=== PATIENT | female | born 1980 | race Caucasian/White ===

== ENCOUNTER 2018-04-10 10:24 | Emergency (ER) | payer OTHER ==
[2018-04-10] MEDS ORDERED: MORPHINE SULFATE 4 MG/ML SYRINGE IVP STA (10:59)
[2018-04-10] MEDS: SODIUM CHLORIDE 0.9% 500 ML IV SCH ×2 (11:37→11:39)
--- NOTE | 2018-04-10 11:44 | ED ---
General Adult HPI - General Chief complaint: Urogenital Stated complaint: hemorrhoids Time Seen by Provider: 04/10/18 10:45 Source: patient Mode of arrival: ambulatory Limitations: no limitations - History of Present Illness Initial comments: Misty is a 37-year-old female with a past medical history of hemorrhoids who presents to the emergency department today for evaluation of rectal pain. Patient reports that she has had hemorrhoids for a long period of time, never had any palpitations, never required any intervention, never been evaluated by a surgeon. Patient reports that approximately one week ago she began having significant pain in her rectum. She thought that this is related to her hemorrhoids. She has treated this discomfort with Tucks pads, Preparation H, sitz baths with absolutely no relief. She called her primary care physician became be evaluated until May, at this time the pain has become unbearable so she came to the ER for evaluation. Patient describes the pain as a constant severe pain. The pain is worse with any palpation or bowel movements. She can identify no relieving factors to the pain. Eyes any associated symptoms including fevers, chills, vomiting, chest pain, shortness of breath, abdominal pain or change in bowel or bladder habits. Patient does report that she is on iron supplement for anemia and that she takes this with a stool softener, however when the rectal pain began she stopped taking the iron because she didn't want to have any constipation or firm bowel movements. - Related Data Home Medications Medication Instructions Recorded Confirmed Ferrous Sulfate [Feosol] 325 mg PO DAILY 04/10/18 04/10/18 Previous Rx's Medication Instructions Recorded Hydrocortisone Acetate [Anusol-Hc] 25 mg RC DAILY #12 supp.rect 04/10/18 Allergies Allergy/AdvReac Type Severity Reaction Status Date / Time No Known Allergies Allergy Verified 04/10/18 10:47 Review of Systems ROS Statement: Those systems with pertinent positive or pertinent negative responses have been documented in the HPI. ROS Other: All systems not noted in ROS Statement are negative. Constitutional: Denies: fever ENT: Denies: throat pain Respiratory: Denies: dyspnea Cardiovascular: Denies: chest pain, palpitations Endocrine: Denies: fatigue Gastrointestinal: Reports: nausea (Episodes of nausea when pain is severe). Denies: abdominal pain, vomiting, diarrhea, constipation Genitourinary: Reports: other (rectal pain). Denies: urgency, dysuria Musculoskeletal: Denies: back pain Skin: Denies: rash, lesions Neurological: Denies: headache, weakness Psychiatric: Denies: anxiety Hematological/Lymphatic: Denies: easy bleeding, easy bruising Past Medical History Past Medical History: No Reported History History of Any Multi-Drug Resistant Organisms: None Reported Past Surgical History: No Surgical Hx Reported Past Psychological History: No Psychological Hx Reported Smoking Status: Current every day smoker Past Alcohol Use History: Occasional Past Drug Use History: None Reported General Exam Limitations: no limitations General appearance: alert, in no apparent distress Head exam: Present: atraumatic, normocephalic Course Vital Signs 04/10/18 10:40 Temperature 98.8 F Pulse Rate 109 H Respiratory 20 Rate Blood Pressure 159/91 O2 Sat by Pulse 97 Oximetry Procedures - Incision & Drainage Consent Obtained: verbal consent Time Out Performed?: Yes Site: buttock (Hemorrhoid) Anesthetic Used: lidocaine 1%, without epi I&D Cleaning Method: Betadine Sterile Field Used?: No Scalpel Used: #11 Needle Aspiration Performed?: No Irrigation Performed?: No I&D Drainage Obtained: Blood (clot) Patient Tolerated Procedure: well Medical Decision Making - Medical Decision Making Patient with rectal pain 1 week, physical exam reveals small hemorrhoids, there is one small thrombosed hemorrhoid, however patient reports a more generalized pain and patient has significant pain with rectal exam. There is minor concern for perirectal abscess despite patient having any risk factors. Labs and CT were ordered. Labs reveal no leukocytosis, no lactic acidosis CT reveals no inflammation of the rectum, no evidence of acute perirectal infection EMLA was ordered for the patient's hemorrhoids with the plan to open one small thrombosed hemorrhoid Local anesthetic was used, a approximately 5 mm incision was made and a small thrombosed hemorrhoid, small clot was evacuated. Patient reported complete resolution of her pain after the lidocaine was applied. Patient tolerated the procedure well. Patient discharged home with a diagnosis of thrombosed hemorrhoid. Was advised to have sitz bath 3 times daily. Follow- up with surgeon who she has seen in the past for discussion of surgical management of hemorrhoids - Lab Data Result diagrams: 04/10/18 11:50 04/10/18 11:50 Lab Results 04/10/18 04/10/18 04/10/18 Range/Units 11:50 11:50 11:50 WBC 8.0 (3.8-10.6) k/uL RBC 4.24 (3.80-5.40) m/uL Hgb 12.6 (11.4-16.0) gm/dL Hct 37.3 (34.0-46.0) % MCV 88.0 (80.0-100.0) fL MCH 29.8 (25.0-35.0) pg MCHC 33.9 (31.0-37.0) g/dL RDW 14.4 (11.5-15.5) % Plt Count 446 (150-450) k/uL Neutrophils % 74 % Lymphocytes % 15 % Monocytes % 6 % Eosinophils % 4 % Basophils % 1 % Neutrophils # 5.9 (1.3-7.7) k/uL Lymphocytes # 1.2 (1.0-4.8) k/uL Monocytes # 0.5 (0-1.0) k/uL Eosinophils # 0.3 (0-0.7) k/uL Basophils # 0.1 (0-0.2) k/uL PT (9.0-12.0) sec INR (<1.2) APTT (22.0-30.0) sec Sodium 139 (137-145) mmol/L Potassium 4.4 (3.5-5.1) mmol/L Chloride 110 H (98-107) mmol/L Carbon Dioxide 22 (22-30) mmol/L Anion Gap 7 mmol/L BUN 14 (7-17) mg/dL Creatinine 0.77 (0.52-1.04) mg/dL Est GFR (CKD-EPI)AfAm >90 (>60 ml/min/1.73 sqM) Est GFR (CKD-EPI)NonAf >90 (>60 ml/min/1.73 sqM) Glucose 92 (74-99) mg/dL Plasma Lactic Acid Steve 0.8 (0.7-2.0) mmol/L Calcium 9.3 (8.4-10.2) mg/dL Total Bilirubin 0.3 (0.2-1.3) mg/dL AST 20 (14-36) U/L ALT 27 (9-52) U/L Alkaline Phosphatase 84 (38-126) U/L Total Protein 6.9 (6.3-8.2) g/dL Albumin 4.3 (3.5-5.0) g/dL Urine Color Urine Appearance (Clear) Urine pH (5.0-8.0) Ur Specific [place] (1.001-1.035) Urine Protein (Negative) Urine Glucose (UA) (Negative) Urine Ketones (Negative) Urine Blood (Negative) Urine Nitrite (Negative) Urine Bilirubin (Negative) Urine Urobilinogen (<2.0) mg/dL Ur Leukocyte Esterase (Negative) Urine RBC (0-5) /hpf Urine WBC (0-5) /hpf Ur Squamous Epith Cells (0-4) /hpf Urine Mucus (None) /hpf Urine HCG, Qual (Not Detectd) 04/10/18 04/10/18 04/10/18 Range/Units 11:50 11:50 11:50 WBC (3.8-10.6) k/uL RBC (3.80-5.40) m/uL Hgb (11.4-16.0) gm/dL Hct (34.0-46.0) % MCV (80.0-100.0) fL MCH (25.0-35.0) pg MCHC (31.0-37.0) g/dL RDW (11.5-15.5) % Plt Count (150-450) k/uL Neutrophils % % Lymphocytes % % Monocytes % % Eosinophils % % Basophils % % Neutrophils # (1.3-7.7) k/uL Lymphocytes # (1.0-4.8) k/uL Monocytes # (0-1.0) k/uL Eosinophils # (0-0.7) k/uL Basophils # (0-0.2) k/uL PT 10.2 (9.0-12.0) sec INR 1.0 (<1.2) APTT 22.5 (22.0-30.0) sec Sodium (137-145) mmol/L Potassium (3.5-5.1) mmol/L Chloride (98-107) mmol/L Carbon Dioxide (22-30) mmol/L Anion Gap mmol/L BUN (7-17) mg/dL Creatinine (0.52-1.04) mg/dL Est GFR (CKD-EPI)AfAm (>60 ml/min/1.73 sqM) Est GFR (CKD-EPI)NonAf (>60 ml/min/1.73 sqM) Glucose (74-99) mg/dL Plasma Lactic Acid Steve (0.7-2.0) mmol/L Calcium (8.4-10.2) mg/dL Total Bilirubin (0.2-1.3) mg/dL AST (14-36) U/L ALT (9-52) U/L Alkaline Phosphatase (38-126) U/L Total Protein (6.3-8.2) g/dL Albumin (3.5-5.0) g/dL Urine Color Yellow Urine Appearance Clear (Clear) Urine pH 5.5 (5.0-8.0) Ur Specific [place] 1.020 (1.001-1.035) Urine Protein Trace H (Negative) Urine Glucose (UA) Negative (Negative) Urine Ketones Negative (Negative) Urine Blood Moderate H (Negative) Urine Nitrite Negative (Negative) Urine Bilirubin Negative (Negative) Urine Urobilinogen <2.0 (<2.0) mg/dL Ur Leukocyte Esterase Small H (Negative) Urine RBC 3 (0-5) /hpf Urine WBC 2 (0-5) /hpf Ur Squamous Epith Cells 1 (0-4) /hpf Urine Mucus Rare H (None) /hpf Urine HCG, Qual Not Detected (Not Detectd) Disposition Clinical Impression: Hemorrhoid thrombosis Disposition: HOME SELF-CARE Instructions: Hemorrhoids (ED), Thrombosed Hemorrhoid (ED) Prescriptions: Hydrocortisone Acetate [Anusol-Hc] 25 mg RC DAILY #12 supp.rect Is patient prescribed a controlled substance at d/c from ED?: No Referrals: Trudy Claudio MD [Primary Care Provider] - 1-2 days Time of Disposition: 14:41
[2018-04-10 12:14] LABS: Basophils # (A) 0.1 k/uL (0-0.2); Basophils % (A) 1 %; Eosinophils # (A) 0.3 k/uL (0-0.7); Eosinophils % (A) 4 %; HCT 37.3 % (34.0-46.0); HGB 12.6 gm/dL (11.4-16.0); Lymphocytes # (A) 1.2 k/uL (1.0-4.8); Lymphocytes % (A) 15 %; MCH 29.8 pg (25.0-35.0); MCHC 33.9 g/dL (31.0-37.0); Mean Platelet Volume 6.6; Monocytes # (A) 0.5 k/uL (0-1.0); Monocytes % (A) 6 %; Neutrophils # (A) 5.9 k/uL (1.3-7.7); Neutrophils % (A) 74 %; Platelet Count 446 k/uL (150-450); RBC 4.24 m/uL (3.80-5.40); RDW 14.4 % (11.5-15.5)
[2018-04-10 12:25] LABS: Appearance,Urine Clear (Clear); Bilirubin,Urine Negative (Negative); Blood,Urine Moderate (Negative); Color,Urine Yellow; Glucose,Urine (UA) Negative (Negative); Ketones,Urine Negative (Negative); Leukocyte Esterase,Urine Small (Negative); Mucus,Urine Rare /hpf; Nitrite,Urine Negative (Negative); PH, Urine 5.5 (5.0-8.0); Protein,Urine Trace (Negative); RBC,Urine 3 /hpf (0-5); Squamous Epithelial Cell,Urine 1 /hpf (0-4); Urobilinogen,Urine <2.0 mg/dL (<2.0); WBC,Urine 2 /hpf (0-5)
[2018-04-10 12:26] LABS: Partial Thromboplastin Time 22.5 sec (22.0-30.0); Prothrombin Time 10.2 sec (9.0-12.0)
[2018-04-10 12:28] LABS: ALT 27 U/L (9-52); AST 20 U/L (14-36); Albumin 4.3 g/dL (3.5-5.0); Alkaline Phosphatase 84 U/L (38-126); Anion Gap 7 mmol/L; Blood Urea Nitrogen 14 mg/dL (7-17); Calcium 9.3 mg/dL (8.4-10.2); Carbon Dioxide 22 mmol/L (22-30); Chloride 110 mmol/L (98-107); Glucose 92 mg/dL (74-99); Potassium 4.4 mmol/L (3.5-5.1); Sodium 139 mmol/L (137-145); Total Bilirubin 0.3 mg/dL (0.2-1.3); Total Protein 6.9 g/dL (6.3-8.2)
--- NOTE | 2018-04-10 12:45 | CT ---
EXAMINATION TYPE: CT abdomen pelvis w con DATE OF EXAM: 04/10/2018 COMPARISON: NONE HISTORY: 37-year-old female rectal pain x 7 days/hemorrhoids, concern for perirectal abscess TECHNIQUE: Contiguous axial scanning of the abdomen and pelvis following administration of 100 ml Iso alvina 300 IV contrast. Delayed images through the kidneys and coronal/sagittal reconstructions perform ed. CT DLP: 1235.4 mGycm Automated exposure control for dose reduction was used. FINDINGS: Heart normal size without pericardial effusion. Lung bases clear without pleural effusion. Liver mildly enlarged at 19.7 cm. No focal liver lesion. No biliary ductal dilatation. Gallbladder mildly hydropic but without any surrounding inflammation. Adrenal glands, kidneys, spleen, and pancreas show no gross abnormal. A few scattered mesenteric lymph nodes are mildly prominent at 7 mm. No dilated small bowel, free fluid, or free air. Scattered mild left-sided colonic diverticulosis. No pericolonic inflammatory change. Bladder nondistended. Uterus is anteverted. An IUD is appropriately situated within the uterine cavit y. Follicular change in both ovaries. The rectum is partially collapsed and there is no oral/rectal c ontrast on board. No abnormal fluid collection in the pelvis or pelvic lymphadenopathy. Bones: Mild degenerative disc disease throughout. IMPRESSION: 1. NO SPECIFIC FINDINGS OF PERIRECTAL/PERIANAL ABSCESS AT THIS TIME. IF THE PATIENT'S CONDITION DOES NOT IMPROVE OR THERE IS PERSISTENT CLINICAL CONCERN, CONSIDER THE ADDITION OF RECTAL CONTRAST. 2. MILD HEPATOMEGALY (19.7 CM). 3. MILDLY HYDROPIC GALLBLADDER BUT WITHOUT ANY SURROUNDING INFLAMMATION. PROBABLY RELATING TO FASTING STATE. IF RIGHT UPPER QUADRANT PAIN OR CONCERN FOR EARLY ACUTE CHOLECYSTITIS FOLLOW-UP ULTRASOUND OR HIDA SCAN. 4. MILD LEFT-SIDED COLONIC DIVERTICULOSIS.
[2018-04-10] MEDS ORDERED: LIDOCAINE-PRILOCAINE 2.5-2.5% CREAM 5 GM TUBE TOPICAL STA (13:25)
[2018-04-10] MEDS ORDERED: LIDOCAINE 1% INJ 10MG/ML (20 ML MDV) SQ ONE (14:43)
[2018-04-10 14:50] VITALS: BP 140/94; PULSE 81; RESP 18; TEMP 97.6
== END 2018-04-10 14:49 | disposition home or self-care (01) ==
LOC: EC 10:24
DX: K64.5 Perianal venous thrombosis (principal); F17.200 Nicotine dependence, unspecified, uncomplicated; Z79.899 Other long term (current) drug therapy
CPT/HCPCS: 36415; 46083; 74177; 80053; 81001; 81025; 83605; 85025; 85610; 85730; 87040; 87086; 93005; 96361; 96374; 99284

== ENCOUNTER 2018-04-27 13:29 | Emergency (ER) | payer OTHER ==
[2018-04-27] MEDS ORDERED: MORPHINE SULFATE 4 MG/ML SYRINGE IVP STA (13:52)
[2018-04-27] MEDS ORDERED: SODIUM CHLORIDE 0.9% 1,000 ML IV STA (13:52)
--- NOTE | 2018-04-27 13:59 | ED ---
General Adult HPI - General Chief complaint: GI Bleed Stated complaint: Rectal pain Time Seen by Provider: 04/27/18 13:44 Source: patient, RN notes reviewed Mode of arrival: ambulatory Limitations: no limitations - History of Present Illness Initial comments: This is a 37-year-old female who presents to the emergency department with chief complaint of rectal pain. Patient states that she has been having rectal pain for the past couple of months. She states that she was seen here in March and a thrombosed hemorrhoid was incised. She states that since that time the rectal pain has not improved. She states that she has noticed bright red blood per rectum and in her stool. Patient denies any worsening of pain but states that she has had no relief. She states that she presents to the emergency department today for evaluation because she "has the day off from work." Patient denies any fevers or chills, chest pain or shortness of breath, abdominal pain. She does state that she feels nauseous. Denies dysuria or hematuria. - Related Data Home Medications Medication Instructions Recorded Confirmed No Known Home Medications 04/27/18 04/27/18 Allergies Allergy/AdvReac Type Severity Reaction Status Date / Time No Known Allergies Allergy Verified 04/27/18 13:36 Review of Systems ROS Statement: Those systems with pertinent positive or pertinent negative responses have been documented in the HPI. ROS Other: All systems not noted in ROS Statement are negative. Past Medical History Past Medical History: No Reported History History of Any Multi-Drug Resistant Organisms: None Reported Past Surgical History: No Surgical Hx Reported Past Psychological History: No Psychological Hx Reported Smoking Status: Current every day smoker Past Alcohol Use History: Occasional Past Drug Use History: None Reported General Exam - General Exam Comments Initial Comments: General: Awake and alert, well-developed; in distress due to pain. Tearful. HEENT: Head atraumatic, normocephalic. Pupils are equal, round and reactive to light. Extraocular movements intact. Oropharynx moist without erythema or exudate. Neck: Supple. Normal ROM. Cardiovascular: Regular rate and rhythm. No murmurs, rubs or gallops. Chest symmetrical. Respiratory: Lungs clear to auscultation bilaterally. No wheezes, rales or rhonchi. Normal respiratory effort with no use of accessory muscles. Abdomen: Soft, non-tender, non-distended. No rigidity, rebound or guarding. Normal bowel sounds in all 4 quadrants. Musculoskeletal: Normal ROM, no tenderness bilateral upper and lower extremities. Ambulating normally. Skin: [place], warm and dry without rashes or lesions. Neurological: Alert and oriented x3. CN II-XII grossly intact. Speech is fluent and answers are appropriate. No focal neuro deficits. Psychiatric: Normal mood and affect. No overt signs of depression or anxiety noted. Limitations: no limitations Rectal exam: Present: normal inspection, normal rectal tone. Absent: hemorrhoids Course Vital Signs 04/27/18 04/27/18 13:33 15:55 Temperature 98.4 F 97.6 F Pulse Rate 121 H 72 Respiratory 20 18 Rate Blood Pressure 143/90 102/61 O2 Sat by Pulse 99 97 Oximetry Medical Decision Making - Medical Decision Making This is a 37-year-old female who presents to the emergency department with chief complaint of rectal pain and bleeding. Patient states she was seen here a couple of weeks ago and had a thrombosed hemorrhoid excised. She states that the pain has not gone away. On physical exam, no hemorrhoids are identified. Patient was sent for a computed tomography scan with rectal contrast. No perianal or perirectal abscesses were identified. Revealed a slightly low hemoglobin at 11.1. Vital signs are stable and patient is in no acute distress. Patient will be given contact information to follow up with gastroenterology. She is in agreement with plan and voices understanding. All questions were answered. - Lab Data Result diagrams: 04/27/18 14:25 04/27/18 14:25 Lab Results 04/27/18 04/27/18 Range/Units 14:25 14:25 WBC 7.7 (3.8-10.6) k/uL RBC 3.76 L (3.80-5.40) m/uL Hgb 11.1 L (11.4-16.0) gm/dL Hct 33.3 L (34.0-46.0) % MCV 88.5 (80.0-100.0) fL MCH 29.6 (25.0-35.0) pg MCHC 33.4 (31.0-37.0) g/dL RDW 14.4 (11.5-15.5) % Plt Count 388 (150-450) k/uL Neutrophils % 72 % Lymphocytes % 17 % Monocytes % 5 % Eosinophils % 3 % Basophils % 0 % Neutrophils # 5.6 (1.3-7.7) k/uL Lymphocytes # 1.3 (1.0-4.8) k/uL Monocytes # 0.4 (0-1.0) k/uL Eosinophils # 0.2 (0-0.7) k/uL Basophils # 0.0 (0-0.2) k/uL Sodium 140 (137-145) mmol/L Potassium 4.6 (3.5-5.1) mmol/L Chloride 110 H (98-107) mmol/L Carbon Dioxide 22 (22-30) mmol/L Anion Gap 8 mmol/L BUN 17 (7-17) mg/dL Creatinine 0.69 (0.52-1.04) mg/dL Est GFR (CKD-EPI)AfAm >90 (>60 ml/min/1.73 sqM) Est GFR (CKD-EPI)NonAf >90 (>60 ml/min/1.73 sqM) Glucose 91 (74-99) mg/dL Calcium 9.5 (8.4-10.2) mg/dL Total Bilirubin 0.2 (0.2-1.3) mg/dL AST 19 (14-36) U/L ALT 28 (9-52) U/L Alkaline Phosphatase 55 (38-126) U/L Total Protein 6.8 (6.3-8.2) g/dL Albumin 4.4 (3.5-5.0) g/dL - Radiology Data Radiology results: report reviewed CT pelvis with contrast impression: No perianal or perirectal abscess identified. 2. Follicular change in the ovaries with a 3.5 cm dominant follicle or functional cyst on the left. 3. Small amount of cul-de-sac and right adnexal free fluid likely physiologic. 4. Anteverted uterus with IUD appropriately centered in the uterine cavity. Disposition Clinical Impression: Rectal pain Disposition: HOME SELF-CARE Condition: Fair Instructions: Rectal Pain (ED) Additional Instructions: Please follow-up with Dr. Ballard, gastroenterology within 1-2 days. Please take medications as prescribed. Please follow up with primary care provider within 1- 2 days. Return to emergency department if symptoms should worsen or any concerns arise. Is patient prescribed a controlled substance at d/c from ED?: No Referrals: Trudy Claudio MD [Primary Care Provider] - 1-2 days Flor Ballard MD [STAFF PHYSICIAN] - 1-2 days Time of Disposition: 15:54
[2018-04-27 14:40] LABS: Basophils % (A) 0 %; Eosinophils # (A) 0.2 k/uL (0-0.7); Eosinophils % (A) 3 %; HCT 33.3 % (34.0-46.0); HGB 11.1 gm/dL (11.4-16.0); Lymphocytes # (A) 1.3 k/uL (1.0-4.8); Lymphocytes % (A) 17 %; MCH 29.6 pg (25.0-35.0); MCHC 33.4 g/dL (31.0-37.0); MCV 88.5 fL (80.0-100.0); Mean Platelet Volume 6.9; Monocytes # (A) 0.4 k/uL (0-1.0); Monocytes % (A) 5 %; Neutrophils # (A) 5.6 k/uL (1.3-7.7); Neutrophils % (A) 72 %; Platelet Count 388 k/uL (150-450); RBC 3.76 m/uL (3.80-5.40); RDW 14.4 % (11.5-15.5); WBC 7.7 k/uL (3.8-10.6)
[2018-04-27 14:55] LABS: ALT 28 U/L (9-52); AST 19 U/L (14-36); Albumin 4.4 g/dL (3.5-5.0); Alkaline Phosphatase 55 U/L (38-126); Anion Gap 8 mmol/L; Blood Urea Nitrogen 17 mg/dL (7-17); Calcium 9.5 mg/dL (8.4-10.2); Carbon Dioxide 22 mmol/L (22-30); Chloride 110 mmol/L (98-107); Glucose 91 mg/dL (74-99); Potassium 4.6 mmol/L (3.5-5.1); Sodium 140 mmol/L (137-145); Total Bilirubin 0.2 mg/dL (0.2-1.3); Total Protein 6.8 g/dL (6.3-8.2)
--- NOTE | 2018-04-27 15:41 | CT ---
EXAMINATION TYPE: CT pelvis w con DATE OF EXAM: 04/27/2018 COMPARISON: 04/10/2018 HISTORY: 37-year-old female Rectal pain and bright red blood in stool. TECHNIQUE: Contiguous axial scanning of the and pelvis following administration of 100 ml Isovue 300 IV contrast. Delayed images through the bladder and coronal/sagittal reconstructions performed. Rect al contrast was also administered. CT DLP: 1233 mGycm Automated exposure control for dose reduction was used. FINDINGS: No dilated small bowel, free fluid, or free air in the lower abdomen. Trace cul-de-sac free fluid is noted in the pelvis and right adnexa. Normal appendix. Moderate stool in the cecum. Anteverted uterus with IUD appropriately centered in the uterine cavity. Follicular change in both ovaries with a 3.5 cm dominant follicle or functional cyst on the left. Luis dder urine distended. No pelvic lymphadenopathy seen. Rectal contrast has been administered. No perineural perirectal abscess is identified. Bones: No osseous destructive process. Bulging discs L2-L5 levels. IMPRESSION: 1. NO PERIANAL OR PERIRECTAL ABSCESS IDENTIFIED. 2. FOLLICULAR CHANGE IN THE OVARIES WITH A 3.5 CM DOMINANT FOLLICLE OR FUNCTIONAL CYST ON THE LEFT. 3. SMALL AMOUNT OF CUL-DE-SAC AND RIGHT ADNEXAL FREE FLUID LIKELY PHYSIOLOGIC. 4. ANTEVERTED UTERUS WITH IUD APPROPRIATELY CENTERED IN THE UTERINE CAVITY.
[2018-04-27] MEDS ORDERED: ACET/COD 300 MG/30 MG STARTER PACK 6 TAB BTL PO STA (15:53)
[2018-04-27 15:55] VITALS: BP 102/61; PULSE 72; RESP 18; TEMP 97.6
== END 2018-04-27 16:04 | disposition home or self-care (01) ==
LOC: EC 13:29
DX: K62.89 Other specified diseases of anus and rectum (principal); K62.5 Hemorrhage of anus and rectum; F17.200 Nicotine dependence, unspecified, uncomplicated; Z87.19 Personal history of other diseases of the digestive system; Z98.890 Other specified postprocedural states
CPT/HCPCS: 99285; 96374; 96361; 36415; 80053; 85025; 72193; J2270; Q9967

== ENCOUNTER 2018-05-14 10:15 | Day surgery (SDC) | payer OTHER ==
[2018-05-12 11:21] VITALS: BMI 30.4
[~2018-05-14 10:15] MED LIST: LIDOCAINE 1% 20 ML VIAL (10MG/ML) FOR IV START INTRADERMA PRN
[2018-05-14 10:51] VITALS: TEMP 98.5
[2018-05-14] MEDS: LACTATED RINGERS 1,000 ML IV SCH ×2 (11:11→11:52)
[2018-05-14] MEDS ORDERED: PROPOFOL 10 MG/ML 20 ML VIAL IV ONE (11:55)
--- NOTE | 2018-05-14 12:14 | P.PCN ---
Date of Procedure: 05/14/18 Procedure(s) Performed: BRIEF HISTORY: Patient is a 37-year-old pleasant white female, scheduled for an elective colonoscopy as a part of rectal bleeding and intermittent rectal pain for the last 2 months duration. PROCEDURE PERFORMED: Colonoscopy. PREOPERATIVE DIAGNOSIS: Rectal bleeding and rectal pain of 3 months duration. IV sedation per Anesthesia. PROCEDURE: After informed consent was obtained, the patient, was brought into the endoscopy unit. IV sedation was administered by Anesthesia under continuous monitoring. Digital rectal examination revealed a posterior midline anal fissure.. Initially the Olympus CF-160 flexible video colonoscope was then inserted in the rectum, gradually advanced into the cecum without any difficulty. Careful examination was performed as the scope was gradually being withdrawn. Ileocecal valve and the appendiceal orifice were visualized and appeared normal. Prep was excellent. Mucosa of the cecum, ascending colon, transverse colon, descending colon, sigmoid colon, and rectum appeared normal. Retroflexion was performed in the rectum and no lesions were seen. The patient tolerated the procedure well. IMPRESSION: Normal-appearing colon from rectum to cecum with no evidence of colorectal neoplasia. Posterior midline anal fissure. RECOMMENDATIONS: Findings of this examination were discussed with the patient family. She was advised to avoid straining and constipation. She will be on a high-fiber diet. Advised and sitz baths and topical hydrocortisone suppositories as needed. She'll be seen in office in 2 weeks.
[2018-05-14 12:21] VITALS: RESP 16
[2018-05-14 12:38] VITALS: BP 119/79; PULSE 69
== END 2018-05-14 13:05 | disposition home or self-care (01) ==
LOC: ORWHC2ENDO 10:15
PROVIDERS: ATTEND Internal Medicine Gastroenterology
DX: K62.5 Hemorrhage of anus and rectum (principal); K60.2 Anal fissure, unspecified; F17.210 Nicotine dependence, cigarettes, uncomplicated; Z79.899 Other long term (current) drug therapy
CPT/HCPCS: 45378; 81025; J2704

== ENCOUNTER 2018-07-06 14:32 | Inpatient (IN) | payer OTHER ==
[2018-07-06] MEDS ORDERED: MORPHINE SULFATE 4 MG/ML SYRINGE IVP STA (14:55)
[2018-07-06] MEDS ORDERED: ONDANSETRON 4 MG/2 ML VIAL IVP STA (14:55)
[2018-07-06 15:30] LABS: Basophils % (A) 0 %; Eosinophils # (A) 0.2 k/uL (0-0.7); Eosinophils % (A) 2 %; HCT 34.8 % (34.0-46.0); HGB 11.2 gm/dL (11.4-16.0); Hypochromasia Slight; Lymphocytes # (A) 1.3 k/uL (1.0-4.8); Lymphocytes % (A) 16 %; MCH 26.4 pg (25.0-35.0); MCHC 32.1 g/dL (31.0-37.0); MCV 82.2 fL (80.0-100.0); Mean Platelet Volume 7.3; Monocytes # (A) 0.4 k/uL (0-1.0); Monocytes % (A) 5 %; Neutrophils % (A) 75 %; Platelet Count 376 k/uL (150-450); RBC 4.24 m/uL (3.80-5.40); RDW 14.7 % (11.5-15.5)
[2018-07-06 15:45] LABS: ALT 21 U/L (9-52); AST 21 U/L (14-36); Albumin 4.5 g/dL (3.5-5.0); Alkaline Phosphatase 63 U/L (38-126); Anion Gap 11 mmol/L; Blood Urea Nitrogen 19 mg/dL (7-17); Calcium 9.7 mg/dL (8.4-10.2); Carbon Dioxide 21 mmol/L (22-30); Chloride 109 mmol/L (98-107); Glucose 97 mg/dL (74-99); Sodium 141 mmol/L (137-145); Total Bilirubin 0.3 mg/dL (0.2-1.3); Total Protein 7.7 g/dL (6.3-8.2)
[2018-07-06] MEDS ORDERED: PIPERACILLIN-TAZOBACTAM 3.375 GM in DEXTROSE/WATER 1 50ML.BAG IVPB STA (15:51)
[2018-07-06] MEDS ORDERED: LEVOFLOXACIN 750MG-D5W PMX 750 MG in DEXTROSE/WATER 1 150ML.BAG IVPB STA (15:51)
--- NOTE | 2018-07-06 15:51 | ED ---
Skin/Abscess/FB HPI - General Chief complaint: Skin/Abscess/Foreign Body Stated complaint: Female , Abscess Time Seen by Provider: 07/06/18 14:43 Source: patient Mode of arrival: ambulatory Limitations: no limitations - History of Present Illness Initial comments: 37-year-old female patient presents to the emergency department today for evaluation of perirectal pain and swelling. Patient states that about a month ago she was treated for anal fissures with rectal steroids which did improve her symptoms. Patient states about 2 days ago she started having discomfort around the anus, states that it worsened today. She is unable to sit. She denies any drainage from the area. She denies any fever or chills. Denies any history of similar symptoms. Patient denies any recent rash, shortness breath, chest pain, abdominal pain, nausea, vomiting, diarrhea, constipation, back pain , numbness, tingling, dizziness, weakness, hematuria, dysuria, urinary urgency, urinary frequency, headache, visual changes, or any other complaints. - Related Data Home Medications Medication Instructions Recorded Confirmed Acetaminophen [Tylenol] 650 mg PO Q4H PRN 05/12/18 05/14/18 Allergies Allergy/AdvReac Type Severity Reaction Status Date / Time No Known Allergies Allergy Verified 07/06/18 14:42 Review of Systems ROS Statement: Those systems with pertinent positive or pertinent negative responses have been documented in the HPI. ROS Other: All systems not noted in ROS Statement are negative. Past Medical History Past Medical History: No Reported History Additional Past Medical History / Comment(s): rectal bleeding and pain History of Any Multi-Drug Resistant Organisms: None Reported Past Surgical History: No Surgical Hx Reported Additional Past Surgical History / Comment(s): colonoscopy Past Anesthesia/Blood Transfusion Reactions: No Reported Reaction Past Psychological History: No Psychological Hx Reported Smoking Status: Current every day smoker Past Alcohol Use History: Occasional Past Drug Use History: None Reported - Past Family History Mother Family Medical History: No Reported History General Exam Limitations: no limitations General appearance: alert, in no apparent distress, other (This is a well- developed, well-nourished adult female patient in no acute distress. Vital signs upon presentation are temperature 98.4F, pulse 86, respirations 18, blood pressure 138/88, pulse ox 98% on room air.) Eye exam: Present: normal appearance, PERRL, EOMI. Absent: scleral icterus, conjunctival injection, periorbital swelling ENT exam: Present: normal exam, normal oropharynx, mucous membranes moist Respiratory exam: Present: normal lung sounds bilaterally. Absent: respiratory distress, wheezes, rales, rhonchi, stridor Cardiovascular Exam: Present: regular rate, normal rhythm, normal heart sounds. Absent: systolic murmur, diastolic murmur, rubs, gallop, clicks GI/Abdominal exam: Present: soft, normal bowel sounds. Absent: distended, tenderness, guarding, rebound, rigid Rectal exam: Present: tenderness (Tenderness to the right side of the anus, 3 cm abscess with surrounding cellulitis and induration, tenderness also to the rectum internally at around 3:00.). Absent: normal inspection Neurological exam: Present: alert, oriented X3, CN II-XII intact Psychiatric exam: Present: normal affect, normal mood Skin exam: Present: warm, dry, intact, normal color. Absent: rash Course Vital Signs 07/06/18 14:39 Temperature 98.4 F Pulse Rate 86 Respiratory 18 Rate Blood Pressure 138/88 O2 Sat by Pulse 98 Oximetry Medical Decision Making - Medical Decision Making 37-year-old female patient presented to the emergency department today for complaints of rectal pain and swelling. Physical examination did reveal perirectal abscess with approximately 3 cm abscess to the right side at 3:00. Patient also had internal rectal tenderness. Labs reviewed and are unremarkable , white blood cell count normal, negative lactic acid. Patient was given pain medication and is feeling better upon reevaluation. We did start antibiotics. My attending Dr. Balbuena did discuss the case with Dr. Brennan who accepts admission. Patient be nothing by mouth at midnight. - Lab Data Result diagrams: 07/06/18 15:15 07/06/18 15:15 Lab Results 07/06/18 07/06/18 07/06/18 Range/Units 15:15 15:15 15:15 WBC 8.0 (3.8-10.6) k/uL RBC 4.24 (3.80-5.40) m/uL Hgb 11.2 L (11.4-16.0) gm/dL Hct 34.8 (34.0-46.0) % MCV 82.2 (80.0-100.0) fL MCH 26.4 (25.0-35.0) pg MCHC 32.1 (31.0-37.0) g/dL RDW 14.7 (11.5-15.5) % Plt Count 376 (150-450) k/uL Neutrophils % 75 % Lymphocytes % 16 % Monocytes % 5 % Eosinophils % 2 % Basophils % 0 % Neutrophils # 6.0 (1.3-7.7) k/uL Lymphocytes # 1.3 (1.0-4.8) k/uL Monocytes # 0.4 (0-1.0) k/uL Eosinophils # 0.2 (0-0.7) k/uL Basophils # 0.0 (0-0.2) k/uL Hypochromasia Slight Sodium 141 (137-145) mmol/L Potassium 4.0 (3.5-5.1) mmol/L Chloride 109 H (98-107) mmol/L Carbon Dioxide 21 L (22-30) mmol/L Anion Gap 11 mmol/L BUN 19 H (7-17) mg/dL Creatinine 0.72 (0.52-1.04) mg/dL Est GFR (CKD-EPI)AfAm >90 (>60 ml/min/1.73 sqM) Est GFR (CKD-EPI)NonAf >90 (>60 ml/min/1.73 sqM) Glucose 97 (74-99) mg/dL Plasma Lactic Acid Steve 0.6 L (0.7-2.0) mmol/L Calcium 9.7 (8.4-10.2) mg/dL Total Bilirubin 0.3 (0.2-1.3) mg/dL AST 21 (14-36) U/L ALT 21 (9-52) U/L Alkaline Phosphatase 63 (38-126) U/L Total Protein 7.7 (6.3-8.2) g/dL Albumin 4.5 (3.5-5.0) g/dL Disposition Clinical Impression: Perirectal abscess Disposition: ADMITTED IP TO THIS [facility] Condition: Serious Referrals: Trudy Claudio MD [Primary Care Provider] - 1-2 days Decision to Admit Reason: Admit from EC Decision Date: 07/06/18 Decision Time: 16:30
[2018-07-06] MEDS ORDERED: NALOXONE 0.4 MG/ML 1 ML VIAL IV PRN (16:10)
[2018-07-06] MEDS ORDERED: ACETAMINOPHEN TAB 325 MG TAB PO PRN (16:10)
[2018-07-06] MEDS ORDERED: ONDANSETRON 4 MG/2 ML VIAL IVP PRN (16:10)
[2018-07-06 17:51] VITALS: BMI 28.8
[2018-07-06] MEDS: MORPHINE SULFATE 4 MG/ML SYRINGE IV PRN ×2 (18:57→22:08)
[2018-07-06] MEDS: SODIUM CHLORIDE 0.9% 1,000 ML IV SCH (23:21)
[2018-07-07] MEDS: MORPHINE SULFATE 4 MG/ML SYRINGE IV PRN ×6 (01:51→21:14)
--- NOTE | 2018-07-07 10:30 | P.GSHP ---
History of Present Illness H&P Date: 07/07/18 Chief Complaint: Perirectal abscess [age]-year-old female was admitted through emergency complaints of anal pain. Patient was worked up found have evidence of perirectal abscess. Patient's had spontaneous drainage of purulent fluid from her anus overnight. She states her pain is improved. Past Medical History Past Medical History: No Reported History Additional Past Medical History / Comment(s): rectal bleeding and pain History of Any Multi-Drug Resistant Organisms: None Reported Past Surgical History: No Surgical Hx Reported Additional Past Surgical History / Comment(s): colonoscopy Past Anesthesia/Blood Transfusion Reactions: No Reported Reaction Past Psychological History: No Psychological Hx Reported Smoking Status: Current every day smoker Past Alcohol Use History: Occasional Additional Past Alcohol Use History / Comment(s): has smoked 1ppd for about 7 yrs; social drinker Past Drug Use History: None Reported - Past Family History Mother Family Medical History: No Reported History Medications and Allergies Home Medications Medication Instructions Recorded Confirmed Type No Known Home Medications 07/06/18 07/06/18 History Allergies Allergy/AdvReac Type Severity Reaction Status Date / Time No Known Allergies Allergy Verified 07/06/18 18:06 Surgical - Exam Vital Signs Temp Pulse Resp BP Pulse Ox 98.4 F 86 18 138/88 98 07/06/18 14:39 07/06/18 14:39 07/06/18 14:39 07/06/18 14:39 07/06/18 14:39 - General well developed, well nourished, no distress - Eyes PERRL - ENT normal pinna - Neck no masses - Respiratory normal expansion - Cardiovascular Rhythm: regular - Abdomen Abdomen: soft, non tender - Rectum Draining perirectal abscess Results - Labs 07/06/18 15:15 07/06/18 15:15 Abnormal Lab Results - Last 24 Hours (Table) 07/06/18 07/06/18 07/06/18 Range/Units 15:15 15:15 15:15 Hgb 11.2 L (11.4-16.0) gm/dL Chloride 109 H (98-107) mmol/L Carbon Dioxide 21 L (22-30) mmol/L BUN 19 H (7-17) mg/dL Plasma Lactic Acid Steve 0.6 L (0.7-2.0) mmol/L Diabetes panel 07/06/18 Range/Units 15:15 Sodium 141 (137-145) mmol/L Potassium 4.0 (3.5-5.1) mmol/L Chloride 109 H (98-107) mmol/L Carbon Dioxide 21 L (22-30) mmol/L BUN 19 H (7-17) mg/dL Creatinine 0.72 (0.52-1.04) mg/dL Glucose 97 (74-99) mg/dL Calcium 9.7 (8.4-10.2) mg/dL AST 21 (14-36) U/L ALT 21 (9-52) U/L Alkaline Phosphatase 63 (38-126) U/L Total Protein 7.7 (6.3-8.2) g/dL Albumin 4.5 (3.5-5.0) g/dL Calcium panel 07/06/18 Range/Units 15:15 Calcium 9.7 (8.4-10.2) mg/dL Albumin 4.5 (3.5-5.0) g/dL Pituitary panel 07/06/18 Range/Units 15:15 Sodium 141 (137-145) mmol/L Potassium 4.0 (3.5-5.1) mmol/L Chloride 109 H (98-107) mmol/L Carbon Dioxide 21 L (22-30) mmol/L BUN 19 H (7-17) mg/dL Creatinine 0.72 (0.52-1.04) mg/dL Glucose 97 (74-99) mg/dL Calcium 9.7 (8.4-10.2) mg/dL Adrenal panel 07/06/18 Range/Units 15:15 Sodium 141 (137-145) mmol/L Potassium 4.0 (3.5-5.1) mmol/L Chloride 109 H (98-107) mmol/L Carbon Dioxide 21 L (22-30) mmol/L BUN 19 H (7-17) mg/dL Creatinine 0.72 (0.52-1.04) mg/dL Glucose 97 (74-99) mg/dL Calcium 9.7 (8.4-10.2) mg/dL Total Bilirubin 0.3 (0.2-1.3) mg/dL AST 21 (14-36) U/L ALT 21 (9-52) U/L Alkaline Phosphatase 63 (38-126) U/L Total Protein 7.7 (6.3-8.2) g/dL Albumin 4.5 (3.5-5.0) g/dL Assessment and Plan Assessment: Perirectal abscess with spontaneous drainage. Patient will continue to receive IV antibiotics.
--- NOTE | 2018-07-07 12:29 | P.CONS ---
History of Present Illness - Reason for Consult Consult date: 07/07/18 Medical management - Chief Complaint Rectal pain - History of Present Illness This is a 37-year-old female with no significant past medical history who presented to the emergency room yesterday with worsening perirectal pain and discomfort. Patient said that several weeks ago she was diagnosed with anal fissures and has been doing fairly well up until 2 days ago when she noted having worsening discomfort around the anus area. She said the pain was severe enough that she was unable to sit down. She reported subjective fevers and chills at home. She presented to the emergency room for further evaluation. Patient did not have any evidence of sepsis on presentation. She was evaluated in the emergency room and was found to have a perirectal abscess diagnosed clinically by rectal exam in the ER. Patient was placed on observation for further evaluation. She was given broad-spectrum IV antibiotic. Apparently her drainage draining spontaneously overnight. She was seen and evaluated by general surgery. I was asked to see her for medical management. Patient herself does not have any complaints. She denies any pain at this time. No documented fever since admission. Review of Systems Review of system: 14 points review of systems were obtained and were negative except to what were mentioned in the HPI. Past Medical History Past Medical History: No Reported History Additional Past Medical History / Comment(s): rectal bleeding and pain History of Any Multi-Drug Resistant Organisms: None Reported Past Surgical History: No Surgical Hx Reported Additional Past Surgical History / Comment(s): colonoscopy Past Anesthesia/Blood Transfusion Reactions: No Reported Reaction Past Psychological History: No Psychological Hx Reported Smoking Status: Current every day smoker Past Alcohol Use History: Occasional Additional Past Alcohol Use History / Comment(s): has smoked 1ppd for about 7 yrs; social drinker Past Drug Use History: None Reported - Past Family History Mother Family Medical History: No Reported History Medications and Allergies Home Medications Medication Instructions Recorded Confirmed Type No Known Home Medications 07/06/18 07/06/18 History Allergies Allergy/AdvReac Type Severity Reaction Status Date / Time No Known Allergies Allergy Verified 07/06/18 18:06 Physical Exam Vitals: Vital Signs Temp Pulse Pulse Resp BP BP Pulse Ox 07/07/18 08:00 98.3 F 59 L 18 93/60 96 07/07/18 04:00 16 07/07/18 00:00 16 07/06/18 23:55 97.8 F 66 16 102/62 97 07/06/18 20:00 97.8 F 64 16 120/75 97 07/06/18 18:01 18 07/06/18 17:42 98.6 F 67 16 127/82 99 07/06/18 17:18 97.8 F 700 H 18 109/65 97 07/06/18 14:39 98.4 F 86 18 138/88 98 Intake and Output 07/06/18 07/07/18 07/07/18 22:59 06:59 14:59 Intake Total 450 440 Balance 450 440 Intake: IV 450 Sodium Chloride 0.9% 1, 450 000 ml @ 75 mls/hr IV . [id number] [facility] Rx#:[id number] Oral 440 Other: Voiding Method Toilet Toilet Toilet # Voids 3 Weight 86.183 kg General: The patient is awake and alert, in no distress Eye: there is normal conjunctiva bilaterally. Neck: The neck is supple, there is no JVD. Cardiovascular: Normal S1-S2, no S3-S4, no murmurs. Respiratory: Lungs clear to auscultation bilaterally Gastrointestinal: Abdomen is soft, nontender Musculoskeletal: There is no pedal edema. Neurological:. Speech is normal. Skin: Skin is warm and dry Results CBC & Chem 7: 07/06/18 15:15 07/06/18 15:15 Labs: Abnormal Lab Results - Last 24 Hours (Table) 07/06/18 07/06/18 07/06/18 Range/Units 15:15 15:15 15:15 Hgb 11.2 L (11.4-16.0) gm/dL Chloride 109 H (98-107) mmol/L Carbon Dioxide 21 L (22-30) mmol/L BUN 19 H (7-17) mg/dL Plasma Lactic Acid Steve 0.6 L (0.7-2.0) mmol/L Assessment and Plan Assessment: This is a 37-year-old female who was placed on observation with a diagnosis of perirectal abscess that drained spontaneously overnight. Patient was seen and evaluated by general surgery. No surgical intervention recommended. We will continue IV antibiotic for now. Patient is admitted under Gen. surgery. May finish short course of oral antibiotic when patient is here for discharge. Below is a list of her medical problems. 1. Perirectal abscess: Drained spontaneously. We will continue Zosyn and Levaquin for now. 2. DVT prophylaxis with subcu heparin. 3. Otherwise healthy female
[2018-07-07 12:57] LABS: Basophils % (A) 1 %; Eosinophils # (A) 0.2 k/uL (0-0.7); Eosinophils % (A) 4 %; HCT 32.7 % (34.0-46.0); HGB 10.6 gm/dL (11.4-16.0); Hypochromasia Slight; Lymphocytes # (A) 1.3 k/uL (1.0-4.8); Lymphocytes % (A) 21 %; MCH 26.5 pg (25.0-35.0); MCHC 32.4 g/dL (31.0-37.0); MCV 81.6 fL (80.0-100.0); Mean Platelet Volume 6.8; Monocytes # (A) 0.4 k/uL (0-1.0); Monocytes % (A) 7 %; Neutrophils % (A) 66 %; Platelet Count 326 k/uL (150-450); RBC 4.01 m/uL (3.80-5.40); RDW 14.3 % (11.5-15.5)
[2018-07-07] MEDS: PIPERACILLIN-TAZOBACTAM 3.375 GM in DEXTROSE/WATER 1 50ML.BAG IVPB SCH ×2 (13:13→21:14)
[2018-07-07] MEDS: LEVOFLOXACIN 500 MG TAB PO SCH (13:13)
[2018-07-07] MEDS: SODIUM CHLORIDE 0.9% 1,000 ML IV SCH (13:23)
[2018-07-07 15:38] VITALS: RESP 16
[2018-07-07] MEDS: HEPARIN SODIUM,PORCINE 5,000 UNIT/ML 1 ML VIAL SQ SCH (21:14)
[2018-07-07 23:26] VITALS: PULSE 66
[2018-07-08] MEDS: MORPHINE SULFATE 4 MG/ML SYRINGE IV PRN ×3 (00:27→08:05)
[2018-07-08] MEDS: SODIUM CHLORIDE 0.9% 1,000 ML IV SCH (03:45)
[2018-07-08] MEDS: PIPERACILLIN-TAZOBACTAM 3.375 GM in DEXTROSE/WATER 1 50ML.BAG IVPB SCH ×2 (03:46→13:16)
[2018-07-08] MEDS: HEPARIN SODIUM,PORCINE 5,000 UNIT/ML 1 ML VIAL SQ SCH (08:03)
[2018-07-08 08:26] VITALS: BP 121/81; TEMP 99
[2018-07-08] MEDS ORDERED: HYDROcodone/APAP 5-325MG 1 EACH TAB PO PRN (10:30)
--- NOTE | 2018-07-08 10:40 | P.PN ---
Subjective Progress Note Date: 07/08/18 Patient is doing well today. She denies any pain. No further drainage of the perianal area. No documented fever since admission. Objective - Vital Signs Vital signs: Vital Signs Temp 99 F 07/08/18 08:00 Pulse 66 07/08/18 08:00 Resp 16 07/08/18 08:00 BP 121/81 07/08/18 08:00 Pulse Ox 99 07/08/18 08:00 Intake & Output 07/07/18 07/08/18 07/08/18 18:59 06:59 18:59 Intake Total 1537 705 4695 Balance 5154 732 0067 Intake: IV 450 Sodium Chloride 0.9% 1, 450 000 ml @ 75 mls/hr IV . [id number] [facility] Rx#:[id number] Oral 740 1020 Other 600 Other: Voiding Method Toilet Toilet Toilet # Voids 2 - Exam General: The patient is awake and alert, in no distress Eye: there is normal conjunctiva bilaterally. Neck: The neck is supple, there is no JVD. Cardiovascular: Normal S1-S2, no S3-S4, no murmurs. Respiratory: Lungs clear to auscultation bilaterally Gastrointestinal: Abdomen is soft, nontender Musculoskeletal: There is no pedal edema. Neurological:. Speech is normal. Skin: Skin is warm and dry Nursing staff informed me that on her exam perianal area appeared normal with no redness or drainage - Labs CBC & Chem 7: 07/07/18 11:47 07/06/18 15:15 Labs: Abnormal Lab Results - Last 24 Hours (Table) 07/07/18 Range/Units 11:47 Hgb 10.6 L (11.4-16.0) gm/dL Hct 32.7 L (34.0-46.0) % Microbiology - Last 24 Hours (Table) 07/06/18 15:15 Blood Culture - Preliminary Blood No Growth after 24 hours Assessment and Plan Assessment: This is a 37-year-old female who was placed on observation with a diagnosis of perirectal abscess that drained spontaneously overnight. Patient was seen and evaluated by general surgery. No surgical intervention recommended. We will continue IV antibiotic for now. Patient is admitted under Gen. surgery. Below is a list of her medical problems. 1. Perirectal abscess: Drained spontaneously. We will continue Zosyn and Levaquin for now. May switch antibiotic to Augmentin for 7 days course 2. DVT prophylaxis with subcu heparin. 3. Otherwise healthy female Medically cleared for discharge
[2018-07-08] MEDS: LEVOFLOXACIN 500 MG TAB PO SCH (13:16)
--- NOTE | 2018-07-08 14:41 | P.DS ---
Providers Date of admission: 07/07/18 16:20 Expected date of discharge: 07/08/18 Attending physician: Gonzalo Brennan Consults: 07/07/18 10:30 Consult Physician Routine Consulting Provider: Ada Isaacs Consult Reason/Comments: Medical management Do you want consulting provider notified?: Yes Primary care physician: Trudy Claudio MD Hospital Course: 37-year-old female who presented to the emergency room with a perirectal abscess that drained spontaneously. Patient was started on IV Zosyn and monitor closely nursing reports that the perianal area appeared normal with no redness and no drainage patient remained afebrile was felt to be appropriate to be discharged home Impression discharge diagnosis Present on admission perirectal abscess drained spontaneously History of anal fistulas treated with rectal steroid noted improvement Present on admission perirectal pain and swelling suspect due to perirectal abscess resolved The above impression and plan of care have been discussed and directed by signing physician. Jossie Romo nurse practitioner acting as scribe for signing physician. Patient Condition at Discharge: Serious Plan - Discharge Summary Discharge Rx Participant: Yes New Discharge Prescriptions: New Amoxicillin/Potassium Clav [Augmentin 875-125 Tablet] 1 tab PO Q12HR #14 tab Acetaminophen Tab [Tylenol Tab] 650 mg PO Q4H PRN #30 tablet PRN Reason: Mild Discomfort Discharge Medication List Acetaminophen Tab [Tylenol Tab] 650 mg PO Q4H PRN #30 tablet 07/08/18 [Rx] Amoxicillin/Potassium Clav [Augmentin 875-125 Tablet] 1 tab PO Q12HR #14 tab [Rx] Follow up Appointment(s)/Referral(s): Trudy Claudio MD [Primary Care Provider] - 1-2 days Gonzalo Brennan MD [STAFF PHYSICIAN] - 1 Week Discharge Disposition: HOME SELF-CARE
== END 2018-07-08 18:24 | disposition home or self-care (01) | DRG 395 ==
LOC: EC 14:32 → UNDOADMOB 16:50 → 1SOBS 16:50 → OBSVTOIN 07-07 16:20
PROVIDERS: ADMIT Surgery; ATTEND Surgery
DX: K61.0 Anal abscess (principal); F17.210 Nicotine dependence, cigarettes, uncomplicated; Z71.6 Tobacco abuse counseling
CPT/HCPCS: 36415; 80053; 83605; 85025; 87040; 96365; 96375; 99284

== ENCOUNTER → 2019-09-12 | Outpatient (CLI) | payer OTHER ==
--- NOTE | 2019-09-13 12:08 | MR ---
EXAMINATION TYPE: MR brain wo/w con DATE OF EXAM: 09/12/2019 COMPARISON: None HISTORY: Blurred vision lt eye TECHNIQUE: Multiplanar, multisequence images of the brain and brainstem is performed without and with IV contras t, utilizing 9 mL intravenous Gadavist . FINDINGS: Diffusion weighted images demonstrate no evidence of a recent infarct or other diffusion ab normality. There is no extra-axial fluid collection or significant white matter signal abnormality. The ventricular system and cisternal spaces are normal in size and appearance. The brain volume is age appropriate. Midline structures demonstrate normal morphology, mild inferior cerebellar tonsillar ectopia is prese nt. The craniocervical junction appears within normal limits. Post contrast images demonstrate no a bnormal enhancement. The dural venous sinuses appear patent. The visualized sinuses are clear and the globes are intact. IMPRESSION: Mild inferior cerebellar tonsillar ectopia.
== END | disposition home or self-care (01) ==
LOC: RADMRIMAIN 14:16
PROVIDERS: ATTEND Ophthalmology
DX: Q04.8 Other specified congenital malformations of brain (principal)
CPT/HCPCS: 70553; A9585

== ENCOUNTER 2019-11-17 09:28 | Emergency (ER) | payer OTHER ==
[2019-11-17 10:02] VITALS: TEMP 99.2
[2019-11-17] MEDS ORDERED: IPRATROPIUM-ALBUTEROL 3 ML NEB INHALATION STA (10:25)
--- NOTE | 2019-11-17 10:26 | ED ---
URI HPI - General Chief Complaint: Upper Respiratory Infection Stated Complaint: cough/congestion Time Seen by Provider: 11/17/19 10:13 Source: patient, RN notes reviewed Mode of arrival: ambulatory Limitations: no limitations - History of Present Illness Initial Comments: This a 3-year-old female presents emergency Department with chief complaint of fever cough congestion body aches. Patient symptoms started last 24 hours. Patient states that she is a daily smoker has some wheezing. Patient otherwise has benign past medical history. Denies any chest pain she states she has muscle and joint aching. Patient states that she's had a slight headache, nasal congestion and nonproductive cough. Patient denies any abdominal complaints including nausea, vomiting diarrhea constipation. No sick contacts. - Related Data Previous Rx's Medication Instructions Recorded Acetaminophen Tab [Tylenol Tab] 650 mg PO Q4H PRN #30 tablet 07/08/18 Amoxicillin/Potassium Clav 1 tab PO Q12HR #14 tab 07/08/18 [Augmentin 875-125 Tablet] Oseltamivir [Tamiflu] 75 mg PO Q12HR #10 cap 11/17/19 Allergies Allergy/AdvReac Type Severity Reaction Status Date / Time No Known Allergies Allergy Verified 07/06/18 18:06 Review of Systems ROS Statement: Those systems with pertinent positive or pertinent negative responses have been documented in the HPI. ROS Other: All systems not noted in ROS Statement are negative. Past Medical History Past Medical History: No Reported History Additional Past Medical History / Comment(s): rectal bleeding and pain History of Any Multi-Drug Resistant Organisms: None Reported Past Surgical History: No Surgical Hx Reported Additional Past Surgical History / Comment(s): colonoscopy Past Anesthesia/Blood Transfusion Reactions: No Reported Reaction Past Psychological History: No Psychological Hx Reported Smoking Status: Current every day smoker Past Alcohol Use History: Occasional Past Drug Use History: None Reported - Past Family History Mother Family Medical History: No Reported History General Exam Limitations: no limitations General appearance: alert, in no apparent distress Head exam: Present: atraumatic, normocephalic, normal inspection Eye exam: Present: normal appearance, PERRL, EOMI. Absent: scleral icterus, conjunctival injection, periorbital swelling ENT exam: Present: normal exam, normal oropharynx, mucous membranes moist, TM's normal bilaterally Neck exam: Present: normal inspection, full ROM. Absent: tenderness, meningismus, lymphadenopathy Respiratory exam: Present: wheezes. Absent: normal lung sounds bilaterally, respiratory distress, rales, rhonchi, stridor Cardiovascular Exam: Present: regular rate, normal rhythm, normal heart sounds. Absent: systolic murmur, diastolic murmur, rubs, gallop, clicks Neurological exam: Present: alert, oriented X3 Skin exam: Present: warm, dry, intact, normal color. Absent: rash Course Vital Signs 11/17/19 11/17/19 11/17/19 09:58 10:26 10:48 Temperature 99.2 F Pulse Rate 97 92 Respiratory 18 18 Rate Blood Pressure 127/87 O2 Sat by Pulse 98 Oximetry 11/17/19 10:56 Temperature Pulse Rate 92 Respiratory Rate Blood Pressure O2 Sat by Pulse Oximetry Medical Decision Making - Medical Decision Making Chest x-ray does not show any definite pneumonia there is some atelectasis noted. Patient is influenza a positive be started on Tamiflu return parameters were discussed. - Lab Data Lab Results 11/17/19 Range/Units 10:31 Influenza Type A RNA Detected H (Not Detectd) Influenza Type B (PCR) Not Detected (Not Detectd) Disposition Clinical Impression: Influenza Disposition: HOME SELF-CARE Condition: Stable Instructions (If sedation given, give patient instructions): Influenza (ED) Additional Instructions: Please return to the Emergency Department if symptoms worsen or any other concerns. Prescriptions: Oseltamivir [Tamiflu] 75 mg PO Q12HR #10 cap Is patient prescribed a controlled substance at d/c from ED?: No Referrals: Marivel Camarena MD [Primary Care Provider] - 1-2 days Time of Disposition: 11:40
--- NOTE | 2019-11-17 10:55 | XR ---
EXAMINATION TYPE: XR chest 2V DATE OF EXAM: 11/17/2019 COMPARISON: NONE HISTORY: Cough and congestion for 2 days TECHNIQUE: Frontal and lateral views of the chest are obtained. FINDINGS: Right middle lobe linear airspace disease likely represents atelectasis not reproduced on the lateral view. No pneumothorax or pleural effusion. The cardiac silhouette size is within normal l imits. The osseous structures are intact. IMPRESSION: Right middle lobe airspace disease is seen on the frontal view only and likely represent s atelectasis given the linear morphology.
[2019-11-17 11:54] VITALS: BP 132/86; PULSE 86; RESP 16
== END 2019-11-17 11:50 | disposition home or self-care (01) ==
LOC: EC 09:28
DX: J10.1 Influenza due to other identified influenza virus with other respiratory manifestations (principal); J98.11 Atelectasis; F17.200 Nicotine dependence, unspecified, uncomplicated
CPT/HCPCS: 71046; 87502; 94640; 99285

== ENCOUNTER 2020-04-18 16:40 | Observation (INO) | payer OTHER ==
[2020-04-18] MEDS ORDERED: ONDANSETRON 4 MG/2 ML VIAL IVP STA (17:15)
[2020-04-18] MEDS ORDERED: KETOROLAC 30 MG/ML 1 ML VIAL IVP STA (17:15)
[2020-04-18] MEDS ORDERED: SODIUM CHLORIDE 0.9% 1,000 ML IV STA (17:15)
[2020-04-18] MEDS ORDERED: MORPHINE SULFATE 4 MG/ML SYRINGE IV STA (17:15)
[2020-04-18] MEDS ORDERED: PANTOPRAZOLE 40 MG/10 ML VIAL IVP STA (17:15)
[2020-04-18] MEDS ORDERED: PIPERACILLIN-TAZOBACTAM 3.375 GM in SODIUM CHLORIDE 0.9% 100 ML IVPB STA (17:19)
[2020-04-18] MEDS: SODIUM CHLORIDE 0.9% 1,000 ML IV STA ×2 (17:34→20:02)
--- NOTE | 2020-04-18 17:51 | ED ---
General Adult HPI <Marcus Vasquez - Last Filed: 04/18/20 19:31> - General Source: patient, RN notes reviewed, old records reviewed Mode of arrival: ambulatory Limitations: no limitations <Mackenzie Smith - Last Filed: 04/18/20 19:38> - General Chief complaint: Skin/Abscess/Foreign Body Stated complaint: Female , abcess Time Seen by Provider: 04/18/20 16:48 - History of Present Illness Initial comments: Patient is a 39-year-old female presents emergency department today for evaluation for concerns for perirectal abscess. Patient reports that she's had one previously which required admission to the hospital. She reports that it eventually drained on its own and did not require surgery intervention. 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 She reports that she started noticed the pain for the past 2 weeks. She states that over the past few days become increasingly painful and Patient notes severe pain with having a bowel movement. She reports that she did have a bowel movement yesterday and reports hard stool. Denies any bloody or dark tarry stool. She denies any fevers or chills. (Mackenzie Smith) - Related Data Previous Rx's Medication Instructions Recorded Acetaminophen Tab [Tylenol Tab] 650 mg PO Q4H PRN #30 tablet 07/08/18 Amoxicillin/Potassium Clav 1 tab PO Q12HR #14 tab 07/08/18 [Augmentin 875-125 Tablet] Oseltamivir [Tamiflu] 75 mg PO Q12HR #10 cap 11/17/19 Allergies Allergy/AdvReac Type Severity Reaction Status Date / Time No Known Allergies Allergy Verified 04/18/20 16:43 Review of Systems ROS Other: All systems not noted in ROS Statement are negative. <Marcus Vasquez - Last Filed: 04/18/20 19:31> ROS Other: All systems not noted in ROS Statement are negative. <Mackenzie Smith - Last Filed: 04/18/20 19:38> ROS Statement: Those systems with pertinent positive or pertinent negative responses have been documented in the HPI. Past Medical History Past Medical History: No Reported History Additional Past Medical History / Comment(s): rectal bleeding and pain History of Any Multi-Drug Resistant Organisms: None Reported Past Surgical History: No Surgical Hx Reported Additional Past Surgical History / Comment(s): colonoscopy Past Anesthesia/Blood Transfusion Reactions: No Reported Reaction Past Psychological History: No Psychological Hx Reported Past Alcohol Use History: Occasional Past Drug Use History: None Reported - Past Family History Mother Family Medical History: No Reported History <SarahMackenzie - Last Filed: 04/18/20 19:38> General Exam Limitations: no limitations General appearance: alert, in no apparent distress Head exam: Present: atraumatic, normocephalic, normal inspection Eye exam: Present: normal appearance, PERRL, EOMI. Absent: scleral icterus, conjunctival injection, periorbital swelling ENT exam: Present: normal exam, mucous membranes moist Neck exam: Present: normal inspection. Absent: tenderness, meningismus, lymphadenopathy Respiratory exam: Present: normal lung sounds bilaterally. Absent: respiratory distress, wheezes, rales, rhonchi, stridor Cardiovascular Exam: Present: regular rate, normal rhythm, normal heart sounds. Absent: systolic murmur, diastolic murmur, rubs, gallop, clicks GI/Abdominal exam: Present: soft, normal bowel sounds. Absent: distended, tenderness, guarding, rebound, rigid Rectal exam: Present: tenderness, other (Patient has a palpable abscess over the left quadrant of the rectum with erythema surrounding the left portion of the anal sphincter. has significant tenderness to palpation). Absent: normal inspection Extremities exam: Present: normal inspection, full ROM, normal capillary refill. Absent: tenderness, pedal edema, joint swelling, calf tenderness Back exam: Present: normal inspection Neurological exam: Present: alert, oriented X3, CN II-XII intact <SarahMackenzie - Last Filed: 04/18/20 19:38> - General Exam Comments Initial Comments: 39-year-old female. Alert and oriented 3. No significant distress. (Mackenzie Smith) Course Vital Signs 04/18/20 16:41 Temperature 98.2 F Pulse Rate 90 Respiratory 18 Rate Blood Pressure 150/91 O2 Sat by Pulse 99 Oximetry Medical Decision Making - Lab Data Result diagrams: 04/18/20 17:33 04/18/20 17:33 <Marcus Vasquez - Last Filed: 04/18/20 19:31> - Lab Data Result diagrams: 04/18/20 17:33 04/18/20 17:33 - Radiology Data Radiology results: report reviewed <Mackenzie Smith - Last Filed: 04/18/20 19:38> - Medical Decision Making Patient reevaluated by myself, Dr. Vasquez. Patient does have swelling and tenderness in the [address] report reviewed. Case discussed with Dr. Brennan will admit covering for surgical call. (Marcus Vasquez) 39-year-old female presents emergency department today for concerns for 2 weeks of developing perirectal abscess. Patient has area of fluctuance and erythema over the left midportion of the rectum. She has significant tenderness and pain to palpation over the anal sphincter.Patient labwork was reviewed, mild anemia, hgb 9.1. WBC within normal limitis. CT abdomen and pelvis was completed and does show concern for 1 cm small perianal abscess. Patient started on Zosyn at this time. Discussed the case with Dr. Vasquez also examined the Patient. He discussed with Dr. Gardiner patient's previous surgeon and Patient admitted at this time for IV antibiotics and surgical consult. (Mackenzie Smith) - Lab Data Lab Results 04/18/20 04/18/20 04/18/20 Range/Units 17:33 17:33 17:33 WBC 6.9 (3.8-10.6) k/uL RBC 4.15 (3.80-5.40) m/uL Hgb 9.2 L (11.4-16.0) gm/dL Hct 29.4 L (34.0-46.0) % MCV 70.7 L (80.0-100.0) fL MCH 22.1 L (25.0-35.0) pg MCHC 31.3 (31.0-37.0) g/dL RDW 18.6 H (11.5-15.5) % Plt Count 436 (150-450) k/uL Neutrophils % 68 % Lymphocytes % 21 % Monocytes % 5 % Eosinophils % 4 % Basophils % 1 % Neutrophils # 4.7 (1.3-7.7) k/uL Lymphocytes # 1.4 (1.0-4.8) k/uL Monocytes # 0.4 (0-1.0) k/uL Eosinophils # 0.3 (0-0.7) k/uL Basophils # 0.0 (0-0.2) k/uL Hypochromasia Marked Anisocytosis Slight Microcytosis Marked PT 9.8 (9.0-12.0) sec INR 0.9 (<1.2) APTT 23.4 (22.0-30.0) sec Sodium 136 L (137-145) mmol/L Potassium 4.0 (3.5-5.1) mmol/L Chloride 105 (98-107) mmol/L Carbon Dioxide 23 (22-30) mmol/L Anion Gap 8 mmol/L BUN 14 (7-17) mg/dL Creatinine 0.63 (0.52-1.04) mg/dL Est GFR (CKD-EPI)AfAm >90 (>60 ml/min/1.73 sqM) Est GFR (CKD-EPI)NonAf >90 (>60 ml/min/1.73 sqM) Glucose 101 H (74-99) mg/dL Plasma Lactic Acid Steve (0.7-2.0) mmol/L Calcium 9.6 (8.4-10.2) mg/dL Total Bilirubin 0.4 (0.2-1.3) mg/dL AST 30 (14-36) U/L ALT 20 (4-34) U/L Alkaline Phosphatase 79 (38-126) U/L Total Protein 7.3 (6.3-8.2) g/dL Albumin 4.6 (3.5-5.0) g/dL Urine Color Urine Appearance (Clear) Urine pH (5.0-8.0) Ur Specific [place] (1.001-1.035) Urine Protein (Negative) Urine Glucose (UA) (Negative) Urine Ketones (Negative) Urine Blood (Negative) Urine Nitrite (Negative) Urine Bilirubin (Negative) Urine Urobilinogen (<2.0) mg/dL Ur Leukocyte Esterase (Negative) Urine RBC (0-5) /hpf Urine WBC (0-5) /hpf Ur Squamous Epith Cells (0-4) /hpf 04/18/20 04/18/20 Range/Units 17:33 17:59 WBC (3.8-10.6) k/uL RBC (3.80-5.40) m/uL Hgb (11.4-16.0) gm/dL Hct (34.0-46.0) % MCV (80.0-100.0) fL MCH (25.0-35.0) pg MCHC (31.0-37.0) g/dL RDW (11.5-15.5) % Plt Count (150-450) k/uL Neutrophils % % Lymphocytes % % Monocytes % % Eosinophils % % Basophils % % Neutrophils # (1.3-7.7) k/uL Lymphocytes # (1.0-4.8) k/uL Monocytes # (0-1.0) k/uL Eosinophils # (0-0.7) k/uL Basophils # (0-0.2) k/uL Hypochromasia Anisocytosis Microcytosis PT (9.0-12.0) sec INR (<1.2) APTT (22.0-30.0) sec Sodium (137-145) mmol/L Potassium (3.5-5.1) mmol/L Chloride (98-107) mmol/L Carbon Dioxide (22-30) mmol/L Anion Gap mmol/L BUN (7-17) mg/dL Creatinine (0.52-1.04) mg/dL Est GFR (CKD-EPI)AfAm (>60 ml/min/1.73 sqM) Est GFR (CKD-EPI)NonAf (>60 ml/min/1.73 sqM) Glucose (74-99) mg/dL Plasma Lactic Acid Steve 0.7 (0.7-2.0) mmol/L Calcium (8.4-10.2) mg/dL Total Bilirubin (0.2-1.3) mg/dL AST (14-36) U/L ALT (4-34) U/L Alkaline Phosphatase (38-126) U/L Total Protein (6.3-8.2) g/dL Albumin (3.5-5.0) g/dL Urine Color Light Yellow Urine Appearance Clear (Clear) Urine pH 5.5 (5.0-8.0) Ur Specific [place] 1.004 (1.001-1.035) Urine Protein Negative (Negative) Urine Glucose (UA) Negative (Negative) Urine Ketones Negative (Negative) Urine Blood Negative (Negative) Urine Nitrite Negative (Negative) Urine Bilirubin Negative (Negative) Urine Urobilinogen <2.0 (<2.0) mg/dL Ur Leukocyte Esterase Small H (Negative) Urine RBC 4 (0-5) /hpf Urine WBC 1 (0-5) /hpf Ur Squamous Epith Cells 1 (0-4) /hpf - Radiology Data Slightly asymmetric appearance of the anus with wall thickening on the left side and 1 cm fluid density to be a small perianal abscess. (Mackenzie Smith) Disposition <Marcus Vasquez - Last Filed: 04/18/20 19:31> Is patient prescribed a controlled substance at d/c from ED?: No Time of Disposition: 19:38 <Mackenzie Smith - Last Filed: 04/18/20 19:38> Clinical Impression: Perirectal abscess Disposition: ADMITTED IP TO THIS HOSP Condition: Stable Referrals: Marivel Camarena MD [Primary Care Provider] - 1-2 days
[2020-04-18 18:00] LABS: Anisocytosis Slight; Basophils % (A) 1 %; Eosinophils # (A) 0.3 k/uL (0-0.7); Eosinophils % (A) 4 %; HCT 29.4 % (34.0-46.0); HGB 9.2 gm/dL (11.4-16.0); Hypochromasia Marked; Lymphocytes # (A) 1.4 k/uL (1.0-4.8); Lymphocytes % (A) 21 %; MCH 22.1 pg (25.0-35.0); MCHC 31.3 g/dL (31.0-37.0); MCV 70.7 fL (80.0-100.0); Mean Platelet Volume 7.5; Microcytosis Marked; Monocytes # (A) 0.4 k/uL (0-1.0); Monocytes % (A) 5 %; Neutrophils # (A) 4.7 k/uL (1.3-7.7); Neutrophils % (A) 68 %; Platelet Count 436 k/uL (150-450); RBC 4.15 m/uL (3.80-5.40); RDW 18.6 % (11.5-15.5); WBC 6.9 k/uL (3.8-10.6)
[2020-04-18 18:07] LABS: ALT 20 U/L (4-34); AST 30 U/L (14-36); African American GFR (CKD) >90 (>60 ml/min/1.73 sqM); Albumin 4.6 g/dL (3.5-5.0); Alkaline Phosphatase 79 U/L (38-126); Anion Gap 8 mmol/L; Blood Urea Nitrogen 14 mg/dL (7-17); Calcium 9.6 mg/dL (8.4-10.2); Carbon Dioxide 23 mmol/L (22-30); Chloride 105 mmol/L (98-107); Glucose 101 mg/dL (74-99); Non-African American GFR(CKD) >90 (>60 ml/min/1.73 sqM); Sodium 136 mmol/L (137-145); Total Bilirubin 0.4 mg/dL (0.2-1.3); Total Protein 7.3 g/dL (6.3-8.2)
[2020-04-18 18:08] LABS: INR 0.9 (<1.2); Partial Thromboplastin Time 23.4 sec (22.0-30.0); Prothrombin Time 9.8 sec (9.0-12.0)
[2020-04-18 18:27] LABS: Appearance,Urine Clear (Clear); Bilirubin,Urine Negative (Negative); Blood,Urine Negative (Negative); Color,Urine Light Yellow; Glucose,Urine (UA) Negative (Negative); Ketones,Urine Negative (Negative); Leukocyte Esterase,Urine Small (Negative); Nitrite,Urine Negative (Negative); PH, Urine 5.5 (5.0-8.0); Protein,Urine Negative (Negative); RBC,Urine 4 /hpf (0-5); Specific Gravity,Urine 1.004 (1.001-1.035); Squamous Epithelial Cell,Urine 1 /hpf (0-4); Urobilinogen,Urine <2.0 mg/dL (<2.0); WBC,Urine 1 /hpf (0-5)
--- NOTE | 2020-04-18 19:01 | CT ---
EXAMINATION TYPE: CT pelvis w con DATE OF EXAM: 04/18/2020 COMPARISON: 04/27/2018 HISTORY: Perirectal abscess. CT DLP: 928.1 mGycm Automated exposure control for dose reduction was used. CONTRAST: Performed with IV Contrast, patient injected with 100 mL of Isovue 300. Images were obtained from the mid kidneys to the floor the pelvis with IV contrast. There is no evidence of mesenteric edema. There are some sigmoid diverticula. No sign of diverticulit is. There is no ascites. There is no evidence of free air. There is no sign of thickened appendix. Th ere is no inguinal hernia. Bladder distends smoothly. Uterus is anteverted. There is minimal soft tissue thickening on the left side of the anus compared to the right. There is small 12 by 8mm fluid area on the posterior left radha e of the anus. There is normal-appearing fecal material in the rectum. I see no rectal wall thickenin g. There is probably a 2 cm cyst on the right ovary. The lower lumbar spine is intact. There is mild posterior disc bulging at L3-4 L4-5. The bony pelvis is intact. Hip joint spaces are fairly normal. T he uterus is anteverted. There is IUD in good position in the uterine fundus. There is a few small ai r bubbles in the vagina thought to be of no significance. IMPRESSION: Slight asymmetric appearance of the anus with wall thickening on the left side and 1 cm area of fluid density that could be small perianal abscess.
[2020-04-18] MEDS ORDERED: IBUPROFEN 400 MG TAB PO PRN (19:46)
[2020-04-18] MEDS ORDERED: ACETAMINOPHEN TAB 325 MG TAB PO PRN (19:46)
[2020-04-18] MEDS ORDERED: ONDANSETRON 4 MG/2 ML VIAL IVP PRN (19:46)
[2020-04-18] MEDS ORDERED: NALOXONE 0.4 MG/ML 1 ML VIAL IV PRN (19:46)
[2020-04-18] MEDS: MORPHINE SULFATE 4 MG/ML SYRINGE IV PRN (22:30)
[2020-04-18] MEDS: PIPERACILLIN-TAZOBACTAM 3.375 GM in SODIUM CHLORIDE 0.9% 100 ML IVPB SCH (23:45)
[2020-04-18] MEDS: SODIUM CHLORIDE 0.9% 1,000 ML IV SCH (23:45)
[2020-04-19] MEDS: MORPHINE SULFATE 4 MG/ML SYRINGE IV PRN ×5 (02:15→22:01)
[2020-04-19] MEDS: SODIUM CHLORIDE 0.9% 1,000 ML IV SCH ×2 (05:16→16:35)
[2020-04-19] MEDS: PIPERACILLIN-TAZOBACTAM 3.375 GM in SODIUM CHLORIDE 0.9% 100 ML IVPB SCH ×3 (08:06→23:08)
[2020-04-19] MEDS: PANTOPRAZOLE 40 MG/10 ML VIAL IV SCH (08:07)
[2020-04-19] MEDS ORDERED: LIDOCAINE 1% INJ 10MG/ML (20 ML MDV) SQ ONE (11:07)
--- NOTE | 2020-04-19 17:12 | P.GSHP ---
History of Present Illness H&P Date: 04/19/20 Chief Complaint: Perirectal pain This a 39-year-old female who is admitted through the emergency room last night with complaints of rectal pain. Patient was found have a small perirectal abscess. She is currently receiving IV antibiotics. Past Medical History Past Medical History: No Reported History Additional Past Medical History / Comment(s): rectal bleeding and pain History of Any Multi-Drug Resistant Organisms: None Reported Past Surgical History: No Surgical Hx Reported Additional Past Surgical History / Comment(s): colonoscopy Past Anesthesia/Blood Transfusion Reactions: No Reported Reaction Smoking Status: Current every day smoker - Past Family History Mother Family Medical History: No Reported History Medications and Allergies Home Medications Medication Instructions Recorded Confirmed Type No Known Home Medications 04/18/20 04/18/20 History Allergies Allergy/AdvReac Type Severity Reaction Status Date / Time No Known Allergies Allergy Verified 04/18/20 22:34 Surgical - Exam Vital Signs Temp Pulse Resp BP Pulse Ox 98.2 F 90 18 150/91 99 04/18/20 16:41 04/18/20 16:41 04/18/20 16:41 04/18/20 16:41 04/18/20 16:41 - General well developed, well nourished, no distress - Eyes PERRL - ENT normal pinna - Neck no masses - Respiratory normal expansion - Cardiovascular Rhythm: regular - Abdomen Abdomen: soft, non tender - Rectum Left perirectal abscess Results - Labs 04/18/20 17:33 04/18/20 17:33 Abnormal Lab Results - Last 24 Hours (Table) 04/18/20 04/18/20 04/18/20 Range/Units 17:33 17:33 17:59 Hgb 9.2 L (11.4-16.0) gm/dL Hct 29.4 L (34.0-46.0) % MCV 70.7 L (80.0-100.0) fL MCH 22.1 L (25.0-35.0) pg RDW 18.6 H (11.5-15.5) % Sodium 136 L (137-145) mmol/L Glucose 101 H (74-99) mg/dL Ur Leukocyte Esterase Small H (Negative) Diabetes panel 04/18/20 Range/Units 17:33 Sodium 136 L (137-145) mmol/L Potassium 4.0 (3.5-5.1) mmol/L Chloride 105 (98-107) mmol/L Carbon Dioxide 23 (22-30) mmol/L BUN 14 (7-17) mg/dL Creatinine 0.63 (0.52-1.04) mg/dL Glucose 101 H (74-99) mg/dL Calcium 9.6 (8.4-10.2) mg/dL AST 30 (14-36) U/L ALT 20 (4-34) U/L Alkaline Phosphatase 79 (38-126) U/L Total Protein 7.3 (6.3-8.2) g/dL Albumin 4.6 (3.5-5.0) g/dL Calcium panel 04/18/20 Range/Units 17:33 Calcium 9.6 (8.4-10.2) mg/dL Albumin 4.6 (3.5-5.0) g/dL Pituitary panel 04/18/20 Range/Units 17:33 Sodium 136 L (137-145) mmol/L Potassium 4.0 (3.5-5.1) mmol/L Chloride 105 (98-107) mmol/L Carbon Dioxide 23 (22-30) mmol/L BUN 14 (7-17) mg/dL Creatinine 0.63 (0.52-1.04) mg/dL Glucose 101 H (74-99) mg/dL Calcium 9.6 (8.4-10.2) mg/dL Adrenal panel 04/18/20 Range/Units 17:33 Sodium 136 L (137-145) mmol/L Potassium 4.0 (3.5-5.1) mmol/L Chloride 105 (98-107) mmol/L Carbon Dioxide 23 (22-30) mmol/L BUN 14 (7-17) mg/dL Creatinine 0.63 (0.52-1.04) mg/dL Glucose 101 H (74-99) mg/dL Calcium 9.6 (8.4-10.2) mg/dL Total Bilirubin 0.4 (0.2-1.3) mg/dL AST 30 (14-36) U/L ALT 20 (4-34) U/L Alkaline Phosphatase 79 (38-126) U/L Total Protein 7.3 (6.3-8.2) g/dL Albumin 4.6 (3.5-5.0) g/dL Assessment and Plan Assessment: Labs this. Patient received IV antibiotics. She'll undergo incision and drainage of pararectal abscess.
--- NOTE | 2020-04-19 17:13 | P.OP ---
Date of Procedure: 04/19/20 Preoperative Diagnosis: Perirectal abscess Postoperative Diagnosis: Perirectal abscess Procedure(s) Performed: Incision and drainage of perirectal abscess Anesthesia: local Surgeon: Gonzalo Brennan Estimated Blood Loss (ml): 5 Pathology: none sent Condition: stable Disposition: PACU Description of Procedure: Patient's placed on her bed in the lateral position.. Lantus was localized 1% local Xylocaine. Using 11 blade a skin incision was made and a small amount. Fluid was expressed from the peritoneal abscess. The wound is packed. Patient tolerated the procedure well.
[2020-04-20] MEDS: SODIUM CHLORIDE 0.9% 1,000 ML IV SCH (02:10)
[2020-04-20] MEDS: KETOROLAC 30 MG/ML 1 ML VIAL IVP PRN ×2 (03:16→09:40)
[2020-04-20 08:11] VITALS: BP 119/74; PULSE 72; RESP 16; TEMP 98.7
[2020-04-20] MEDS: PANTOPRAZOLE 40 MG/10 ML VIAL IV SCH (08:14)
[2020-04-20] MEDS: PIPERACILLIN-TAZOBACTAM 3.375 GM in SODIUM CHLORIDE 0.9% 100 ML IVPB SCH (08:14)
--- NOTE | 2020-04-20 11:02 | P.DS ---
Providers Date of admission: 04/20/20 09:56 Expected date of discharge: 04/20/20 Attending physician: Gonzalo Brennan Consults: 04/19/20 17:16 Consult Physician Routine Consulting Provider: Bety Ortez Consult Reason/Comments: Medical management Do you want consulting provider notified?: Yes Primary care physician: Marivel Camarena [facility] Course: This a 39-year-old female who was admitted to the hospital. Rectal abscess. Patient underwent bedside drainage of perirectal abscess. Please see hospital chart for details. Patient Condition at Discharge: Stable Plan - Discharge Summary Discharge Rx Participant: No New Discharge Prescriptions: New HYDROcodone/APAP 5-325MG [[place] 5-325] 1 tab PO Q6HR PRN #10 tab PRN Reason: Pain Sulfamethox-Tmp 800-160Mg [Bactrim DS 800-160 mg] 1 tab PO Q12HR #14 tab Discharge Medication List HYDROcodone/APAP 5-325MG [[place] 5-325] 1 tab PO Q6HR PRN #10 tab 04/20/20 [Rx] Sulfamethox-Tmp 800-160Mg [Bactrim DS 800-160 mg] 1 tab PO Q12HR #14 tab 04/20/20 [Rx] Follow up Appointment(s)/Referral(s): Marivel Camarena MD [Primary Care Provider] - 1-2 days Gonzalo Brennan MD [STAFF PHYSICIAN] - 1 Week Discharge Disposition: HOME SELF-CARE
--- NOTE | 2020-07-01 11:25 | P.CONS ---
History of Present Illness - Reason for Consult Consult date: 04/20/20 Medical management - Chief Complaint rectal pain - History of Present Illness Patient is a 39-year-old female without significant past medical history came to ER with complaints of rectal pain and concern for perirectal abscesses. Patient states that she was previously required admission to the hospital. Patient states that abscess is draining on its own and did not require any surgical intervention. Patient started noticing rectal pain for the past 2 weeks and over the past few days pain has been increasing and severe pain with bowel movement. Patient did have bowel movement with hard stool yesterday. Denied any hematemesis at melena or hematochezia. No fever no chills. Denied any history of multiple sexual partners. Patient states that she was tested for HIV previously and was negative. Laboratory data showed WBC 6.9, hemoglobin 9.2 and MCV 70.7 and RDW 18.6 Sodium 136, potassium 4.0 and chloride 105, BUN 14 and creatinine 0.63 UA negative for infection COVID-19 infection negative Hemodynamically stable Patient underwent I&D of perirectal abscess. Review of Systems Constitutional: Patient denies any fever or chills . No generalized weakness or weight loss. Abdomen: Patient denied nausea vomiting and diarrhea and abdominal pain. Patient does have rectal pain and pain with bowel movement. Cardiovascular: Patient denies any chest pain or short of breath no palpitations. Respiratory: patient denied any cough or sputum production. No shortness of breath Neurologic: Patient denied any numbness or tingling headache. Musculoskeletal: Patient denies any complaints of joint swelling or deformity. Skin: Negative Psychiatric: Negative Endocrine: No heat or cold intolerance. No recent weight gain. Genitourinary: No dysuria or hematuria. All other 14 point ROS negative except the above Past Medical History Past Medical History: No Reported History Additional Past Medical History / Comment(s): rectal bleeding and pain History of Any Multi-Drug Resistant Organisms: None Reported Past Surgical History: No Surgical Hx Reported Additional Past Surgical History / Comment(s): colonoscopy Past Anesthesia/Blood Transfusion Reactions: No Reported Reaction Smoking Status: Current every day smoker - Past Family History Mother Family Medical History: No Reported History Medications and Allergies Home Medications Medication Instructions Recorded Confirmed Type Amoxicillin 875 mg PO Q12HR 06/14/20 06/14/20 History Allergies Allergy/AdvReac Type Severity Reaction Status Date / Time No Known Allergies Allergy Verified 06/14/20 13:39 Physical Exam Vitals: Vital Signs Temp Pulse Resp BP Pulse Ox 04/20/20 08:09 98.7 F 72 16 119/74 99 04/20/20 03:00 98.3 F 73 18 104/67 98 04/19/20 21:00 98 F 60 18 113/76 99 04/19/20 15:00 97.4 F L 65 118/78 98 Intake and Output 04/19/20 04/20/20 04/20/20 22:59 06:59 14:59 Intake Total 650 400 Balance 650 400 Intake: Intake, IV Titration 200 200 Amount Sodium Chloride 0.9% 1, 200 200 000 ml @ 100 mls/hr IV . Q10H [facility] Rx#:[id number] Oral 450 200 Other: Voiding Method Toilet Toilet # Voids 1 1 PHYSICAL EXAMINATION: Patient is lying in the bed comfortably, no acute distress, awake alert and oriented.. HEENT: Normocephalic. Neck is supple. Pupils reactive. Nostrils clear. Oral cavity is moist. Ears reveal no drainage. Neck reveals no JVD, carotid bruits, or thyromegaly. CHEST EXAMINATION: Trachea is central. Symmetrical expansion. Lung lilly clear to auscultation and percussion. CARDIAC: Normal S1, S2 with no gallops. No murmurs ABDOMEN: Soft. Bowel sounds normal. No organomegaly. No abdominal bruits. Extremities: reveal no edema. No clubbing or cyanosis Neurologically awake, alert, oriented x3 with well-coordinated movements. No focal deficits noted Skin: No rash or skin lesions. Psychiatric: Coperative. Nonsuicidal Musculoskeletal: No joint swelling or deformity. Normal range of motion. Results CBC & Chem 7: 04/18/20 17:33 04/18/20 17:33 Labs: Microbiology - Last 24 Hours (Table) 04/18/20 17:50 Blood Culture - Preliminary Blood No Growth after 24 hours Assessment and Plan Assessment: Perirectal abscess status post IND Previous history of perirectal abscess Denied history of high risk sexual behavior. Microcytic iron deficiency anemia DVT prophylaxis with early ambulation Plan: Patient will be continued on antibiotics and follow-up culture reports of incision and drainage. Follow blood cultures. Patient has been afebrile currently. Pain is much improved after the incision and drainage. Continue with stool softeners and avoid constipation. Further recommendations based on the clinical course. Follow-up with primary care physician.
== END 2020-04-20 11:40 | disposition home or self-care (01) ==
LOC: EC 16:40 → 1SOBS 19:32 → INTOOBSV 04-20 09:56 → OBSVTOIN 04-20 09:56 → UNDODISIN 04-20 11:40
PROVIDERS: ADMIT Surgery; ATTEND Surgery
DX: K61.1 Rectal abscess (principal); D64.9 Anemia, unspecified; F17.200 Nicotine dependence, unspecified, uncomplicated; Z20.828 Contact with and (suspected) exposure to other viral communicable diseases; Z87.19 Personal history of other diseases of the digestive system; Z98.890 Other specified postprocedural states
CPT/HCPCS: 46040; 96361 ×4; 96366 ×3; 96375 ×2; 96376 ×3; 96365; 99285; 36415; 80053; 83605; 85025; 85610; 85730; 81001; 87040; 72193; G0378 ×3; U0003; J2543 ×3; J2270 ×2; J2405; J1885 ×2; C9113 ×2; Q9967

== ENCOUNTER 2020-06-07 16:17 | Emergency (ER) | payer OTHER ==
[2020-06-07 16:21] VITALS: BP 143/92
[2020-06-07] MEDS ORDERED: SODIUM CHLORIDE 0.9% 1,000 ML IV STA (16:32)
[2020-06-07] MEDS ORDERED: AMPICILLIN-SULBACTAM 3 GM in SODIUM CHLORIDE 0.9% 100 ML IVPB STA (16:32)
[2020-06-07] MEDS ORDERED: KETOROLAC 15 MG/ML 1 ML VIAL IVP STA (16:33)
[2020-06-07] MEDS ORDERED: DEXAMETHASONE SOD PHOSPHATE 10 MG/ML 1 ML VIAL IV STA (16:33)
--- NOTE | 2020-06-07 16:36 | ED ---
ENT HPI - General Chief complaint: Dental/Oral Stated complaint: dental pain Time Seen by Provider: 06/07/20 16:24 Source: patient, RN notes reviewed, old records reviewed Mode of arrival: ambulatory Limitations: no limitations - History of Present Illness Initial comments: This is a 39-year-old female DF she presents for evaluation of left dental pain left for her dental pain and swelling she is on antibiotics for 2 days of symptoms are progressively worsened, she did see her dentist for possible tooth pulled but secondary to worsening swelling and pain she was unable to have that done today. She denies any fevers. Is complaining of severe pain difficulty opening her mouth on that left side MD complaint: tooth pain -: days(s) Location: tooth # (Left rare lower molar) Severity: severe Severity scale (1-10): 8 Quality: stabbing Consistency: constant Improves with: none Worsens with: none Context- Ear: recent illness Associated Symptoms: pain with swallowing - Related Data Previous Rx's Medication Instructions Recorded HYDROcodone/APAP 5-325MG [[place] 1 tab PO Q6HR PRN #10 tab 04/20/20 5-325] Sulfamethox-Tmp 800-160Mg [Bactrim 1 tab PO Q12HR #14 tab 04/20/20 DS 800-160 mg] Allergies Allergy/AdvReac Type Severity Reaction Status Date / Time No Known Allergies Allergy Verified 06/07/20 16:21 Review of Systems ROS Statement: Those systems with pertinent positive or pertinent negative responses have been documented in the HPI. ROS Other: All systems not noted in ROS Statement are negative. Past Medical History Past Medical History: No Reported History Additional Past Medical History / Comment(s): rectal bleeding and pain History of Any Multi-Drug Resistant Organisms: None Reported Past Surgical History: No Surgical Hx Reported Additional Past Surgical History / Comment(s): colonoscopy Past Anesthesia/Blood Transfusion Reactions: No Reported Reaction Past Psychological History: No Psychological Hx Reported Smoking Status: Current every day smoker Past Alcohol Use History: None Reported Past Drug Use History: None Reported - Past Family History Mother Family Medical History: No Reported History General Exam Limitations: no limitations General appearance: alert, in no apparent distress Head exam: Present: atraumatic, normocephalic, normal inspection. Absent: other (Patient does have significant swelling to left jaw left lower molar area that extends into upper area of her neck, tenderness) Eye exam: Present: normal appearance, PERRL, EOMI. Absent: scleral icterus, conjunctival injection, periorbital swelling ENT exam: Present: normal exam, mucous membranes moist Neck exam: Present: normal inspection. Absent: tenderness, meningismus, lymphadenopathy Respiratory exam: Present: normal lung sounds bilaterally. Absent: respiratory distress, wheezes, rales, rhonchi, stridor Cardiovascular Exam: Present: regular rate, normal rhythm, normal heart sounds. Absent: systolic murmur, diastolic murmur, rubs, gallop, clicks GI/Abdominal exam: Present: soft, normal bowel sounds. Absent: distended, tenderness, guarding, rebound, rigid Extremities exam: Present: normal inspection, full ROM, normal capillary refill. Absent: tenderness, pedal edema, joint swelling, calf tenderness Back exam: Present: normal inspection Neurological exam: Present: alert, oriented X3, CN II-XII intact Psychiatric exam: Present: normal affect, normal mood Skin exam: Present: warm, dry, intact, normal color. Absent: rash Course Vital Signs 06/07/20 16:18 Temperature 98.3 F Pulse Rate 105 H Respiratory 18 Rate Blood Pressure 143/92 O2 Sat by Pulse 100 Oximetry - Reevaluation(s) Reevaluation #1: 06/07/20 17:43 Medical records reviewed Reevaluation #2: 06/07/20 17:43 Symptoms much improved - Consultations Consultation #1: Spoke with Dr. Love who agrees to see patient in the office tomorrow Medical Decision Making - Medical Decision Making 39 female presents today for evaluation of left lower rear molar abscess with edema. Patient given follow-up with oral surgery for tomorrow will continue antibiotics and pain control - Lab Data Result diagrams: 06/07/20 16:43 06/07/20 16:43 Lab Results 06/07/20 06/07/20 06/07/20 Range/Units 16:43 16:43 16:43 WBC 10.2 (3.8-10.6) k/uL RBC 4.44 (3.80-5.40) m/uL Hgb 9.8 L (11.4-16.0) gm/dL Hct 32.5 L (34.0-46.0) % MCV 73.3 L (80.0-100.0) fL MCH 22.0 L (25.0-35.0) pg MCHC 30.1 L (31.0-37.0) g/dL RDW 18.0 H (11.5-15.5) % Plt Count 373 (150-450) k/uL Neutrophils % 80 % Lymphocytes % 11 % Monocytes % 5 % Eosinophils % 3 % Basophils % 0 % Neutrophils # 8.2 H (1.3-7.7) k/uL Lymphocytes # 1.1 (1.0-4.8) k/uL Monocytes # 0.5 (0-1.0) k/uL Eosinophils # 0.3 (0-0.7) k/uL Basophils # 0.0 (0-0.2) k/uL Hypochromasia Marked Anisocytosis Slight Microcytosis Moderate PT 9.5 (9.0-12.0) sec INR 0.9 (<1.2) APTT 22.2 (22.0-30.0) sec Sodium 138 (137-145) mmol/L Potassium 4.1 (3.5-5.1) mmol/L Chloride 108 H (98-107) mmol/L Carbon Dioxide 21 L (22-30) mmol/L Anion Gap 9 mmol/L BUN 10 (7-17) mg/dL Creatinine 0.68 (0.52-1.04) mg/dL Est GFR (CKD-EPI)AfAm >90 (>60 ml/min/1.73 sqM) Est GFR (CKD-EPI)NonAf >90 (>60 ml/min/1.73 sqM) Glucose 98 (74-99) mg/dL Calcium 9.6 (8.4-10.2) mg/dL Phosphorus 4.1 (2.5-4.5) mg/dL Magnesium 2.0 (1.6-2.3) mg/dL Total Bilirubin 0.4 (0.2-1.3) mg/dL AST 29 (14-36) U/L ALT 17 (4-34) U/L Alkaline Phosphatase 77 (38-126) U/L Creatine Kinase 78 (30-135) U/L Total Protein 7.5 (6.3-8.2) g/dL Albumin 4.4 (3.5-5.0) g/dL - Radiology Data Radiology results: report reviewed (CT soft tissue neck shows no discernible abscess or erosion into bone does show significant cellulitis and swelling submandibularly), image reviewed Disposition Clinical Impression: Dental abscess, Dental caries Disposition: HOME SELF-CARE Condition: Good Instructions (If sedation given, give patient instructions): Dental Abscess (ED) Is patient prescribed a controlled substance at d/c from ED?: No Referrals: Dino Tobar DDS [STAFF PHYSICIAN] - 1-2 days
[2020-06-07 16:56] LABS: Anisocytosis Slight; Basophils % (A) 0 %; Eosinophils # (A) 0.3 k/uL (0-0.7); Eosinophils % (A) 3 %; HCT 32.5 % (34.0-46.0); HGB 9.8 gm/dL (11.4-16.0); Hypochromasia Marked; Lymphocytes # (A) 1.1 k/uL (1.0-4.8); Lymphocytes % (A) 11 %; MCHC 30.1 g/dL (31.0-37.0); MCV 73.3 fL (80.0-100.0); Mean Platelet Volume 6.9; Microcytosis Moderate; Monocytes # (A) 0.5 k/uL (0-1.0); Monocytes % (A) 5 %; Neutrophils # (A) 8.2 k/uL (1.3-7.7); Neutrophils % (A) 80 %; Platelet Count 373 k/uL (150-450); RBC 4.44 m/uL (3.80-5.40); WBC 10.2 k/uL (3.8-10.6)
[2020-06-07 17:04] LABS: INR 0.9 (<1.2); Partial Thromboplastin Time 22.2 sec (22.0-30.0); Prothrombin Time 9.5 sec (9.0-12.0)
[2020-06-07 17:06] LABS: ALT 17 U/L (4-34); AST 29 U/L (14-36); African American GFR (CKD) >90 (>60 ml/min/1.73 sqM); Albumin 4.4 g/dL (3.5-5.0); Alkaline Phosphatase 77 U/L (38-126); Anion Gap 9 mmol/L; Blood Urea Nitrogen 10 mg/dL (7-17); Calcium 9.6 mg/dL (8.4-10.2); Carbon Dioxide 21 mmol/L (22-30); Chloride 108 mmol/L (98-107); Creatine Kinase 78 U/L (30-135); Glucose 98 mg/dL (74-99); Non-African American GFR(CKD) >90 (>60 ml/min/1.73 sqM); Phosphorus 4.1 mg/dL (2.5-4.5); Potassium 4.1 mmol/L (3.5-5.1); Sodium 138 mmol/L (137-145); Total Bilirubin 0.4 mg/dL (0.2-1.3); Total Protein 7.5 g/dL (6.3-8.2)
[2020-06-07] MEDS ORDERED: ACET/COD 300 MG/30 MG STARTER PACK 6 TAB BTL PO STA (17:42)
[2020-06-07] MEDS ORDERED: Acetaminophen-Codeine 300-30mg TAB PO STA (17:42)
[2020-06-07] MEDS ORDERED: MORPHINE SULFATE 4 MG/ML SYRINGE IVP STA (17:42)
--- NOTE | 2020-06-07 18:08 | CT ---
EXAMINATION TYPE: CT facial bones w con DATE OF EXAM: 06/07/2020 COMPARISON: None HISTORY: Left sided jaw and facial swelling CT DLP: 357 mGycm Automated exposure control for dose reduction was used. CONTRAST: Performed with IV Contrast, patient injected with 100 mL of Isovue 300. Images are obtained from the bottom of the mandible to the top of the frontal sinuses without IV cont rast. Thyroid gland is symmetric. There is subcutaneous edema around the mandible and more on the left side . The submandibular salivary glands are symmetric. Parotid glands are symmetric. There is 12 mm left submandibular lymph node. There is normal contrast opacification of the carotid arteries and jugular veins. The epiglottis is normal. Prevertebral soft tissues appear normal. Tonsils and adenoids appear normal. I see no bony destructive process. Mandibular ring is intact. Maxilla is intact. Zygomatic a rches appear normal. There is fairly normal aeration of the paranasal sinuses. The nasal bone is inta ct. Orbital margins are intact. There is no evidence of retro-orbital mass. The tongue appears normal . Cervical vertebra have fairly normal spacing and alignment. There is mild spurring at C5-6 and C6-7 . IMPRESSION: Subcutaneous edema and FAT stranding in the left submandibular region consistent with phlegmon and ce llulitis. No drainable fluid collection. This is more noticeable on the anterior left side of the man dible. No fracture. No evidence of osteomyelitis.
[2020-06-07] MEDS ORDERED: PENICILLIN V POTASSIUM 250 MG TAB PO STA (18:23)
[2020-06-07] MEDS ORDERED: PENICILLIN VK 500MG STARTER 4 TAB BTL PO STA (18:23)
[2020-06-07 18:52] VITALS: PULSE 97; RESP 16; TEMP 98.8
== END 2020-06-07 18:53 | disposition home or self-care (01) ==
LOC: EC 16:17
DX: K04.7 Periapical abscess without sinus (principal); K02.9 Dental caries, unspecified; F17.200 Nicotine dependence, unspecified, uncomplicated
CPT/HCPCS: 36415; 80053; 82550; 83735; 84100; 85025; 85610; 85730; 87040; 70487; 99284; 96374; 96375 ×3; 96361 ×2; J2270; J1100; J0295; J1885; Q9967

== ENCOUNTER 2020-06-14 12:17 | Emergency (ER) | payer OTHER ==
[2020-06-14 12:21] VITALS: TEMP 98.1
--- NOTE | 2020-06-14 12:51 | ED ---
General Adult HPI - General Chief complaint: Recheck/Abnormal Lab/Rx Stated complaint: abn labs Time Seen by Provider: 06/14/20 12:30 Source: patient, RN notes reviewed Mode of arrival: ambulatory Limitations: no limitations - History of Present Illness Initial comments: 39-year-old female presents emergency Department chief complaint of positive blood culture. Patient states she was seen here last week for dental infection she did follow-up with oral surgeon which she had a tooth extracted. Patient states that is healing the pain is improving. She reports no fever or chills or any night sweats. Patient states that she was told she had come the emergency room for bloodwork. Patient is currently taking amoxicillin. Patient denies any other complaints or dysuria no hematuria no cough congestion no headache no dizziness no neck pain or neck stiffness. - Related Data Previous Rx's Medication Instructions Recorded HYDROcodone/APAP 5-325MG [Plato 1 tab PO Q6HR PRN #10 tab 04/20/20 5-325] Sulfamethox-Tmp 800-160Mg [Bactrim 1 tab PO Q12HR #14 tab 04/20/20 DS 800-160 mg] Allergies Allergy/AdvReac Type Severity Reaction Status Date / Time No Known Allergies Allergy Verified 06/14/20 12:21 Review of Systems ROS Statement: Those systems with pertinent positive or pertinent negative responses have been documented in the HPI. ROS Other: All systems not noted in ROS Statement are negative. Past Medical History Past Medical History: No Reported History Additional Past Medical History / Comment(s): rectal bleeding and pain History of Any Multi-Drug Resistant Organisms: None Reported Past Surgical History: No Surgical Hx Reported Additional Past Surgical History / Comment(s): colonoscopy Past Anesthesia/Blood Transfusion Reactions: No Reported Reaction Past Psychological History: No Psychological Hx Reported Smoking Status: Current every day smoker Past Alcohol Use History: None Reported Past Drug Use History: None Reported - Past Family History Mother Family Medical History: No Reported History General Exam Limitations: no limitations General appearance: alert, in no apparent distress Head exam: Present: atraumatic, normocephalic, normal inspection Eye exam: Present: normal appearance, PERRL, EOMI. Absent: scleral icterus, conjunctival injection, periorbital swelling ENT exam: Present: mucous membranes moist. Absent: normal oropharynx (Recent dental extraction left lower) Neck exam: Present: normal inspection, full ROM. Absent: tenderness, meningismus, lymphadenopathy Respiratory exam: Present: normal lung sounds bilaterally. Absent: respiratory distress, wheezes, rales, rhonchi, stridor Cardiovascular Exam: Present: normal rhythm, tachycardia, normal heart sounds. Absent: systolic murmur, diastolic murmur, rubs, gallop, clicks GI/Abdominal exam: Present: soft, normal bowel sounds. Absent: distended, tenderness, guarding, rebound, rigid Course Vital Signs 06/14/20 12:18 Temperature 98.1 F Pulse Rate 111 H Respiratory 18 Rate Blood Pressure 155/97 O2 Sat by Pulse 100 Oximetry Medical Decision Making - Medical Decision Making Patient presented for positive blood culture. This most likely is a contaminant. Patient has no complaints , denies any systemic complaints. Patient had dental extraction. Patient reverted blood cultures and lab work which is unremarkable. - Lab Data Result diagrams: 06/14/20 12:55 06/14/20 12:55 Lab Results 06/14/20 06/14/20 06/14/20 Range/Units 12:55 12:55 12:55 WBC 6.8 (3.8-10.6) k/uL RBC 4.70 (3.80-5.40) m/uL Hgb 10.1 L (11.4-16.0) gm/dL Hct 33.8 L (34.0-46.0) % MCV 72.0 L (80.0-100.0) fL MCH 21.4 L (25.0-35.0) pg MCHC 29.8 L (31.0-37.0) g/dL RDW 18.0 H (11.5-15.5) % Plt Count 495 H (150-450) k/uL Neutrophils % 67 % Lymphocytes % 22 % Monocytes % 6 % Eosinophils % 3 % Basophils % 1 % Neutrophils # 4.6 (1.3-7.7) k/uL Lymphocytes # 1.5 (1.0-4.8) k/uL Monocytes # 0.4 (0-1.0) k/uL Eosinophils # 0.2 (0-0.7) k/uL Basophils # 0.1 (0-0.2) k/uL Hypochromasia Marked Anisocytosis Slight Microcytosis Moderate Sodium 140 (137-145) mmol/L Potassium 4.3 (3.5-5.1) mmol/L Chloride 107 (98-107) mmol/L Carbon Dioxide 22 (22-30) mmol/L Anion Gap 11 mmol/L BUN 13 (7-17) mg/dL Creatinine 0.66 (0.52-1.04) mg/dL Est GFR (CKD-EPI)AfAm >90 (>60 ml/min/1.73 sqM) Est GFR (CKD-EPI)NonAf >90 (>60 ml/min/1.73 sqM) Glucose 90 (74-99) mg/dL Plasma Lactic Acid Steve (0.7-2.0) mmol/L Calcium 10.0 (8.4-10.2) mg/dL Total Bilirubin 0.4 (0.2-1.3) mg/dL AST 31 (14-36) U/L ALT 21 (4-34) U/L Alkaline Phosphatase 77 (38-126) U/L Total Protein 8.5 H (6.3-8.2) g/dL Albumin 5.1 H (3.5-5.0) g/dL Urine Color Light Yellow Urine Appearance Cloudy H (Clear) Urine pH 6.5 (5.0-8.0) Ur Specific [place] 1.012 (1.001-1.035) Urine Protein Negative (Negative) Urine Glucose (UA) Negative (Negative) Urine Ketones Negative (Negative) Urine Blood Small H (Negative) Urine Nitrite Negative (Negative) Urine Bilirubin Negative (Negative) Urine Urobilinogen <2.0 (<2.0) mg/dL Ur Leukocyte Esterase Small H (Negative) Urine RBC 2 (0-5) /hpf Urine WBC 1 (0-5) /hpf Ur Squamous Epith Cells 3 (0-4) /hpf Urine Mucus Rare H (None) /hpf 06/14/20 Range/Units 12:55 WBC (3.8-10.6) k/uL RBC (3.80-5.40) m/uL Hgb (11.4-16.0) gm/dL Hct (34.0-46.0) % MCV (80.0-100.0) fL MCH (25.0-35.0) pg MCHC (31.0-37.0) g/dL RDW (11.5-15.5) % Plt Count (150-450) k/uL Neutrophils % % Lymphocytes % % Monocytes % % Eosinophils % % Basophils % % Neutrophils # (1.3-7.7) k/uL Lymphocytes # (1.0-4.8) k/uL Monocytes # (0-1.0) k/uL Eosinophils # (0-0.7) k/uL Basophils # (0-0.2) k/uL Hypochromasia Anisocytosis Microcytosis Sodium (137-145) mmol/L Potassium (3.5-5.1) mmol/L Chloride (98-107) mmol/L Carbon Dioxide (22-30) mmol/L Anion Gap mmol/L BUN (7-17) mg/dL Creatinine (0.52-1.04) mg/dL Est GFR (CKD-EPI)AfAm (>60 ml/min/1.73 sqM) Est GFR (CKD-EPI)NonAf (>60 ml/min/1.73 sqM) Glucose (74-99) mg/dL Plasma Lactic Acid Steve 0.8 (0.7-2.0) mmol/L Calcium (8.4-10.2) mg/dL Total Bilirubin (0.2-1.3) mg/dL AST (14-36) U/L ALT (4-34) U/L Alkaline Phosphatase (38-126) U/L Total Protein (6.3-8.2) g/dL Albumin (3.5-5.0) g/dL Urine Color Urine Appearance (Clear) Urine pH (5.0-8.0) Ur Specific [place] (1.001-1.035) Urine Protein (Negative) Urine Glucose (UA) (Negative) Urine Ketones (Negative) Urine Blood (Negative) Urine Nitrite (Negative) Urine Bilirubin (Negative) Urine Urobilinogen (<2.0) mg/dL Ur Leukocyte Esterase (Negative) Urine RBC (0-5) /hpf Urine WBC (0-5) /hpf Ur Squamous Epith Cells (0-4) /hpf Urine Mucus (None) /hpf Disposition Clinical Impression: H/O blood culture, Hx of dental abscess Disposition: HOME SELF-CARE Condition: Stable Additional Instructions: Please return to the Emergency Department if symptoms worsen or any other concerns. Is patient prescribed a controlled substance at d/c from ED?: No Referrals: Marivel Camarena MD [Primary Care Provider] - 1-2 days Time of Disposition: 13:42
[2020-06-14 13:15] LABS: Anisocytosis Slight; Basophils # (A) 0.1 k/uL (0-0.2); Basophils % (A) 1 %; Eosinophils # (A) 0.2 k/uL (0-0.7); Eosinophils % (A) 3 %; HCT 33.8 % (34.0-46.0); HGB 10.1 gm/dL (11.4-16.0); Hypochromasia Marked; Lymphocytes # (A) 1.5 k/uL (1.0-4.8); Lymphocytes % (A) 22 %; MCH 21.4 pg (25.0-35.0); MCHC 29.8 g/dL (31.0-37.0); Mean Platelet Volume 6.3; Microcytosis Moderate; Monocytes # (A) 0.4 k/uL (0-1.0); Monocytes % (A) 6 %; Neutrophils # (A) 4.6 k/uL (1.3-7.7); Neutrophils % (A) 67 %; Platelet Count 495 k/uL (150-450); WBC 6.8 k/uL (3.8-10.6)
[2020-06-14 13:21] LABS: Appearance,Urine Cloudy (Clear); Bilirubin,Urine Negative (Negative); Blood,Urine Small (Negative); Color,Urine Light Yellow; Glucose,Urine (UA) Negative (Negative); Ketones,Urine Negative (Negative); Leukocyte Esterase,Urine Small (Negative); Mucus,Urine Rare /hpf; Nitrite,Urine Negative (Negative); PH, Urine 6.5 (5.0-8.0); Protein,Urine Negative (Negative); RBC,Urine 2 /hpf (0-5); Specific Gravity,Urine 1.012 (1.001-1.035); Squamous Epithelial Cell,Urine 3 /hpf (0-4); Urobilinogen,Urine <2.0 mg/dL (<2.0); WBC,Urine 1 /hpf (0-5)
[2020-06-14 13:28] LABS: ALT 21 U/L (4-34); AST 31 U/L (14-36); African American GFR (CKD) >90 (>60 ml/min/1.73 sqM); Albumin 5.1 g/dL (3.5-5.0); Alkaline Phosphatase 77 U/L (38-126); Anion Gap 11 mmol/L; Blood Urea Nitrogen 13 mg/dL (7-17); Carbon Dioxide 22 mmol/L (22-30); Chloride 107 mmol/L (98-107); Glucose 90 mg/dL (74-99); Non-African American GFR(CKD) >90 (>60 ml/min/1.73 sqM); Potassium 4.3 mmol/L (3.5-5.1); Sodium 140 mmol/L (137-145); Total Bilirubin 0.4 mg/dL (0.2-1.3); Total Protein 8.5 g/dL (6.3-8.2)
[2020-06-14 13:58] VITALS: BP 116/80
[2020-06-14 13:59] VITALS: PULSE 82; RESP 18
== END 2020-06-14 13:54 | disposition home or self-care (01) ==
LOC: EC 12:17
DX: R78.81 Bacteremia (principal); F17.200 Nicotine dependence, unspecified, uncomplicated; Z86.19 Personal history of other infectious and parasitic diseases; Z98.818 Other dental procedure status
CPT/HCPCS: 36415; 80053; 81001; 83605; 85025; 87040; 99283

== ENCOUNTER → 2020-08-22 | Outpatient (CLI) | payer OTHER ==
--- NOTE | 2020-08-22 09:31 | MM ---
Reason for exam: screening (asymptomatic). Baseline mammogram. History: Took hormonal contraceptives for 11 years beginning at age 18. Physical Findings: Nurse did not find any significant physical abnormalities on exam. MG Screening Mammo w CAD Bilateral CC and MLO view(s) were taken. Spot compression CC view(s) were taken of the right breast. The breast tissue is heterogeneously dense. This may lower the sensitivity of mammography. Far posterior medial asymmetric density right breast possible island of tissue can be reassessed in 6 months. Otherwise, no discrete abnormality. These results were verbally communicated with the patient and result sheet given to the patient on 08/22/20. ASSESSMENT: Probably benign, BI-RAD 3 RECOMMENDATION: Follow-up diagnostic mammogram of the right breast in 6 months.
== END | disposition home or self-care (01) ==
LOC: RADMAMWWP 07:27
PROVIDERS: ATTEND Family Medicine
DX: Z12.31 Encounter for screening mammogram for malignant neoplasm of breast (principal)
CPT/HCPCS: 77067

== ENCOUNTER 2020-10-04 09:30 | Day surgery (SDC) | payer OTHER ==
[2020-09-28 15:12] VITALS: BMI 30.4
[2020-10-04] MEDS ORDERED: LACTATED RINGERS 1,000 ML IV ONE (09:54)
[2020-10-04 10:02] VITALS: TEMP 97.7
[2020-10-04] MEDS ORDERED: LIDOCAINE 1% INJ 10MG/ML (20 ML MDV) ONE (10:41)
[2020-10-04] MEDS ORDERED: MIDAZOLAM 2 MG/2 ML VIAL ONE (10:41)
[2020-10-04] MEDS ORDERED: fentaNYL (PF) 50 MCG/ML 2 ML AMP ONE (10:41)
[2020-10-04] MEDS ORDERED: PROPOFOL 10 MG/ML 20 ML VIAL IV ONE (10:41)
--- NOTE | 2020-10-04 11:01 | P.PCN ---
Date of Procedure: 10/04/20 Description of Procedure: BRIEF HISTORY: Patient is a 40-year-old female presenting for outpatient EGD for evaluation of iron deficiency anemia. Patient was seen in the GI clinic with anemia noted at the level evaluation since 05/2020. Repeat hemoglobin and 06/2029.6 with iron 14 and 3% saturation. She denies any change in bowel habits but did feel that bowel movements are occasionally dark. She has experienced some fatigue. Previously she underwent colonoscopy in 05/14/2018 with findings of an anal fissure. PROCEDURE PERFORMED: Esophagogastroduodenoscopy with biopsy. PREOPERATIVE DIAGNOSIS: Iron deficiency anemia, melena. ESTIMATED BLOOD LOSS: Minimal. IV sedation per anesthesia. PROCEDURE: After informed consent was obtained, the patient was brought into the endoscopy unit. IV sedation was administered by Anesthesia under continuous monitoring. Initially the Olympus GIF-190 video endoscope was inserted into the mouth. Esophagus intubated without any difficulty. It was gradually advanced into the stomach and duodenum and carefully examined. The bulb and the second part of the duodenum appeared normal, with biopsies taken to rule out celiac sprue. The scope at this time was withdrawn to the stomach, adequately insufflated with air, and upon careful examination, mucosa of the antrum, body, cardia and the fundus appeared normal, except for some mild punctate erythema suggestive of mild gastritis with biopsies taken of the antrum and body. The scope was then w ithdrawn into the esophagus. The GE junction was located at 42 cm from the incisors and appeared somewhat irregular but the lower esophagus. The esophagus appeared normal. There were no erosions or ulcerations seen and the patient tolerated the procedure well. IMPRESSION: 1. Mild gastritis. 2. Biopsies of the duodenum, antrum and body and lower esophagus. RECOMMENDATIONS: The findings of this examination were discussed with the patient and her family. Okay to resume diet. Okay to resume medications. Patient has follow-up appointment in the GI clinic to go over results of biopsies. Await pathology from biopsies.
[2020-10-04 11:17] VITALS: BP 123/87; PULSE 84; RESP 16
== END 2020-10-04 11:31 | disposition home or self-care (01) ==
LOC: ORWHC2ENDO 09:30
PROVIDERS: ATTEND Internal Medicine
DX: K29.50 Unspecified chronic gastritis without bleeding (principal); K21.00 Gastro-esophageal reflux disease with esophagitis, without bleeding; D50.9 Iron deficiency anemia, unspecified; Z72.0 Tobacco use; Z98.890 Other specified postprocedural states
CPT/HCPCS: 81025; 88305; 43239; J2250; J2001; J3010; J2704

== ENCOUNTER → 2021-02-09 | Outpatient (CLI) | payer OTHER ==
--- NOTE | 2021-02-10 08:21 | MM ---
Reason for exam: follow-up at short interval from prior study. Last mammogram was performed 6 months ago. History: Took hormonal contraceptives for 11 years beginning at age 18. Physical Findings: Nurse did not find any significant physical abnormalities on exam. MG 3D Diag Mammo W/Cad RT CC, MLO, and LM view(s) were taken of the right breast. Prior study comparison: August 22, 2020, bilateral MG screening mammo w CAD. The breast tissue is heterogeneously dense. This may lower the sensitivity of mammography. Previously seen right breast density at posterior depth has resolved. These results were verbally communicated with the patient and result sheet given to the patient on 02/09/21. ASSESSMENT: Benign, BI-RAD 2 RECOMMENDATION: Return to routine screening mammogram schedule for both breasts. Back on schedule.
== END | disposition home or self-care (01) ==
LOC: RADMAMWWP 14:53
PROVIDERS: ATTEND Family Medicine
DX: R92.2 Inconclusive mammogram (principal)
CPT/HCPCS: 77065; G0279; 77061

== ENCOUNTER 2022-07-05 16:14 | Emergency (ER) | payer OTHER ==
[2022-07-05 16:43] VITALS: TEMP 98.1
[2022-07-05] MEDS ORDERED: SODIUM CHLORIDE 0.9% 2,000 ML IV STA (18:03)
[2022-07-05] MEDS ORDERED: MORPHINE SULFATE 4 MG/ML SYRINGE IVP STA (18:05)
[2022-07-05 18:41] LABS: Basophils % (A) 1 %; Eosinophils # (A) 0.3 k/uL (0-0.7); Eosinophils % (A) 4 %; HCT 37.2 % (34.0-46.0); HGB 12.5 gm/dL (11.4-16.0); Lymphocytes # (A) 1.5 k/uL (1.0-4.8); Lymphocytes % (A) 18 %; MCH 28.9 pg (25.0-35.0); MCHC 33.6 g/dL (31.0-37.0); MCV 86.1 fL (80.0-100.0); Mean Platelet Volume 8.7; Monocytes # (A) 0.5 k/uL (0-1.0); Monocytes % (A) 7 %; Neutrophils # (A) 5.4 k/uL (1.3-7.7); Neutrophils % (A) 68 %; Platelet Count 334 k/uL (150-450); RBC 4.32 m/uL (3.80-5.40); RDW 14.8 % (11.5-15.5)
[2022-07-05 18:46] LABS: INR 0.9 (<1.2); Prothrombin Time 10.3 sec (9.0-12.0)
[2022-07-05 18:47] LABS: ALT 25 U/L (4-34); AST 26 U/L (14-36); African American GFR (CKD) >90 (>60 ml/min/1.73 sqM); Albumin 4.6 g/dL (3.5-5.0); Alkaline Phosphatase 81 U/L (38-126); Anion Gap 13 mmol/L; Blood Urea Nitrogen 18 mg/dL (7-17); Calcium 9.4 mg/dL (8.4-10.2); Carbon Dioxide 22 mmol/L (22-30); Chloride 105 mmol/L (98-107); Glucose 99 mg/dL (74-99); Non-African American GFR(CKD) >90 (>60 ml/min/1.73 sqM); Potassium 4.2 mmol/L (3.5-5.1); Sodium 140 mmol/L (137-145); Total Bilirubin 0.2 mg/dL (0.2-1.3); Total Protein 7.4 g/dL (6.3-8.2)
[2022-07-05 18:48] LABS: Appearance,Urine Clear (Clear); Bilirubin,Urine Negative (Negative); Blood,Urine Large (Negative); Color,Urine Light Red; Glucose,Urine (UA) Negative (Negative); Ketones,Urine Negative (Negative); Leukocyte Esterase,Urine Moderate (Negative); Mucus,Urine Rare /hpf; Nitrite,Urine Negative (Negative); PH, Urine 5.5 (5.0-8.0); Protein,Urine Trace (Negative); RBC,Urine >182 /hpf (0-5); Specific Gravity,Urine 1.015 (1.001-1.035); Urobilinogen,Urine <2.0 mg/dL (<2.0); WBC,Urine 5 /hpf (0-5)
--- NOTE | 2022-07-05 20:12 | ED ---
Abdominal Pain HPI - General Chief Complaint: Abdominal Pain Stated Complaint: ABD Pain Time Seen by Provider: 07/05/22 17:48 Source: patient Mode of arrival: ambulatory Limitations: no limitations - History of Present Illness Initial Comments: Patient is a 41-year-old female presenting with chief complaint of pelvic pain. Patient states that pain began today. It is located in the bilateral pelvis, most prominent on the right side. She also admits to heavy vaginal bleeding. States that she is changing her pad approximately every hour. She denies any upper abdominal pain. Admits to nausea, no vomiting. Patient states "I feel like I'm in labor". Patient states she has not recently been sexually active, she has a copper IUD that has been in place for a few years. No chest pain or difficulty breathing. No fever or chills. - Related Data Home Medications Medication Instructions Recorded Confirmed No Known Home Medications 09/28/20 07/05/22 Allergies Allergy/AdvReac Type Severity Reaction Status Date / Time No Known Allergies Allergy Verified 07/05/22 21:45 Review of Systems ROS Statement: Those systems with pertinent positive or pertinent negative responses have been documented in the HPI. ROS Other: All systems not noted in ROS Statement are negative. Past Medical History Past Medical History: No Reported History Additional Past Medical History / Comment(s): low iron anemia Hx rectal bleeding and pain History of Any Multi-Drug Resistant Organisms: None Reported Past Surgical History: No Surgical Hx Reported Additional Past Surgical History / Comment(s): colonoscopy Past Anesthesia/Blood Transfusion Reactions: No Reported Reaction Additional Past Anesthesia/Blood Transfusion Reaction / Comment(s): no hx blood transfusion Past Psychological History: No Psychological Hx Reported Smoking Status: Current every day smoker Past Alcohol Use History: Occasional Past Drug Use History: None Reported - Past Family History Mother Family Medical History: No Reported History General Exam Limitations: no limitations General appearance: alert, in no apparent distress Head exam: Present: atraumatic, normocephalic, normal inspection Eye exam: Present: normal appearance, PERRL, EOMI. Absent: scleral icterus, conjunctival injection, periorbital swelling Neck exam: Present: normal inspection Respiratory exam: Present: normal lung sounds bilaterally. Absent: respiratory distress, wheezes, rales, rhonchi, stridor Cardiovascular Exam: Present: regular rate, normal rhythm, normal heart sounds. Absent: systolic murmur, diastolic murmur, rubs, gallop, clicks Neurological exam: Present: alert, oriented X3, CN II-XII intact Psychiatric exam: Present: normal affect, normal mood Skin exam: Present: warm, dry, intact, normal color. Absent: rash Course Vital Signs 07/05/22 07/05/22 16:40 22:30 Temperature 98.1 F Pulse Rate 113 H 84 Respiratory 20 16 Rate Blood Pressure 162/83 132/88 O2 Sat by Pulse 99 100 Oximetry Medical Decision Making - Medical Decision Making Patient is a 41-year-old female presenting with chief complaint of right-sided pelvic pain and vaginal bleeding. Symptoms started today. On examination there is tenderness over the pelvic region. CBC, coags, CMP are unremarkable. Urine is positive for blood, from vaginal bleeding. HCG is negative. Imaging shows bilateral ovarian cysts. Patient is educated on these findings. Instructed to follow-up with RADIOLOGY RN. Follow-up with PCP. Report back to ER with any new or worsening symptoms. Discussed return parameters and answered all questions. Patient conveyed verbal understanding and agreed to the plan. I discussed this case in detail with my attending Dr. Watts. - Lab Data Result diagrams: 07/05/22 18:25 07/05/22 18:25 Lab Results 07/05/22 07/05/22 07/05/22 Range/Units 18:25 18:25 18:25 WBC 8.0 (3.8-10.6) k/uL RBC 4.32 (3.80-5.40) m/uL Hgb 12.5 (11.4-16.0) gm/dL Hct 37.2 (34.0-46.0) % MCV 86.1 (80.0-100.0) fL MCH 28.9 (25.0-35.0) pg MCHC 33.6 (31.0-37.0) g/dL RDW 14.8 (11.5-15.5) % Plt Count 334 (150-450) k/uL MPV 8.7 Neutrophils % 68 % Lymphocytes % 18 % Monocytes % 7 % Eosinophils % 4 % Basophils % 1 % Neutrophils # 5.4 (1.3-7.7) k/uL Lymphocytes # 1.5 (1.0-4.8) k/uL Monocytes # 0.5 (0-1.0) k/uL Eosinophils # 0.3 (0-0.7) k/uL Basophils # 0.0 (0-0.2) k/uL PT 10.3 (9.0-12.0) sec INR 0.9 (<1.2) APTT 24.0 (22.0-30.0) sec Sodium 140 (137-145) mmol/L Potassium 4.2 (3.5-5.1) mmol/L Chloride 105 (98-107) mmol/L Carbon Dioxide 22 (22-30) mmol/L Anion Gap 13 mmol/L BUN 18 H (7-17) mg/dL Creatinine 0.67 (0.52-1.04) mg/dL Est GFR (CKD-EPI)AfAm >90 (>60 ml/min/1.73 sqM) Est GFR (CKD-EPI)NonAf >90 (>60 ml/min/1.73 sqM) Glucose 99 (74-99) mg/dL Plasma Lactic Acid Steve (0.7-2.0) mmol/L Calcium 9.4 (8.4-10.2) mg/dL Total Bilirubin 0.2 (0.2-1.3) mg/dL AST 26 (14-36) U/L ALT 25 (4-34) U/L Alkaline Phosphatase 81 (38-126) U/L Total Protein 7.4 (6.3-8.2) g/dL Albumin 4.6 (3.5-5.0) g/dL Urine Color Urine Appearance (Clear) Urine pH (5.0-8.0) Ur Specific [place] (1.001-1.035) Urine Protein (Negative) Urine Glucose (UA) (Negative) Urine Ketones (Negative) Urine Blood (Negative) Urine Nitrite (Negative) Urine Bilirubin (Negative) Urine Urobilinogen (<2.0) mg/dL Ur Leukocyte Esterase (Negative) Urine RBC (0-5) /hpf Urine WBC (0-5) /hpf Urine Mucus (None) /hpf Urine HCG, Qual (Not Detectd) 07/05/22 07/05/22 07/05/22 Range/Units 18:25 18:35 18:35 WBC (3.8-10.6) k/uL RBC (3.80-5.40) m/uL Hgb (11.4-16.0) gm/dL Hct (34.0-46.0) % MCV (80.0-100.0) fL MCH (25.0-35.0) pg MCHC (31.0-37.0) g/dL RDW (11.5-15.5) % Plt Count (150-450) k/uL MPV Neutrophils % % Lymphocytes % % Monocytes % % Eosinophils % % Basophils % % Neutrophils # (1.3-7.7) k/uL Lymphocytes # (1.0-4.8) k/uL Monocytes # (0-1.0) k/uL Eosinophils # (0-0.7) k/uL Basophils # (0-0.2) k/uL PT (9.0-12.0) sec INR (<1.2) APTT (22.0-30.0) sec Sodium (137-145) mmol/L Potassium (3.5-5.1) mmol/L Chloride (98-107) mmol/L Carbon Dioxide (22-30) mmol/L Anion Gap mmol/L BUN (7-17) mg/dL Creatinine (0.52-1.04) mg/dL Est GFR (CKD-EPI)AfAm (>60 ml/min/1.73 sqM) Est GFR (CKD-EPI)NonAf (>60 ml/min/1.73 sqM) Glucose (74-99) mg/dL Plasma Lactic Acid Steve 0.7 (0.7-2.0) mmol/L Calcium (8.4-10.2) mg/dL Total Bilirubin (0.2-1.3) mg/dL AST (14-36) U/L ALT (4-34) U/L Alkaline Phosphatase (38-126) U/L Total Protein (6.3-8.2) g/dL Albumin (3.5-5.0) g/dL Urine Color Light Red Urine Appearance Clear (Clear) Urine pH 5.5 (5.0-8.0) Ur Specific [place] 1.015 (1.001-1.035) Urine Protein Trace H (Negative) Urine Glucose (UA) Negative (Negative) Urine Ketones Negative (Negative) Urine Blood Large H (Negative) Urine Nitrite Negative (Negative) Urine Bilirubin Negative (Negative) Urine Urobilinogen <2.0 (<2.0) mg/dL Ur Leukocyte Esterase Moderate H (Negative) Urine RBC >182 H (0-5) /hpf Urine WBC 5 (0-5) /hpf Urine Mucus Rare H (None) /hpf Urine HCG, Qual Not Detected (Not Detectd) Disposition Clinical Impression: Ovarian cyst Disposition: HOME SELF-CARE Condition: Good Instructions (If sedation given, give patient instructions): Ovarian Cyst (ED) Additional Instructions: Follow-up with PCP and RADIOLOGY RN. Report back to ER with any new or worsening symptoms. Take Motrin and Tylenol as needed for pain control. Is patient prescribed a controlled substance at d/c from ED?: No Referrals: Marivel Camarena MD [Primary Care Provider] - 1-2 days Time of Disposition: 22:24
--- NOTE | 2022-07-05 20:50 | US ---
EXAMINATION TYPE: US transvaginal DATE OF EXAM: 07/05/2022 COMPARISON: NONE CLINICAL HISTORY: pelvic pain, vaginal bleeding. RLQ pain and vaginal bleeding that started today. TECHNIQUE: Transvaginal sonographic images of the pelvis were acquired Date of LMP: 06/29/22 EXAM MEASUREMENTS: Uterus: 9.9 x 6.2 x 5.4 cm Endometrial Stripe: 0.63 cm Right Ovary: 2.9 x 3.0 x 2.0 cm Left Ovary: 6.9 x 5.7 x 4.4 cm 1. Uterus: Anteverted wnl 2. Endometrium: IUD appears to be in normal placement 3. Right Ovary: wnl 4. Left Ovary: Enlarged and complex with no definite mass visualized, but has good blood flow. Free fluid adjacent to ovary Spectral, color and waveform doppler imaging shows good arterial and venous flow within the ovaries ; there is no evidence for ovarian torsion. 5. Bilateral Adnexa: Small amount of free fluid adjacent to both ovaries. Bowel seen in both adnexas 6. Posterior cul-de-sac: Small amount of free fluid IMPRESSION: 1. No definite acute process to correlate with the patient's symptoms/signs. 2. Enlarged left ovary noted. Unless indicated sooner on a clinical basis, would suggest two-week fol low-up ultrasound.
--- NOTE | 2022-07-05 22:22 | CT ---
EXAMINATION TYPE: CT abdomen pelvis w con DATE OF EXAM: 07/05/2022 COMPARISON: 04/10/2018 HISTORY: lower abdominal pain CT DLP: 1834.6 mGycm Automated exposure control for dose reduction was used. CONTRAST: Performed with IV Contrast, patient injected with 100 mL of Isovue 300. Images obtained from the diaphragm to the floor of the pelvis with the IV contrast. There is mild subsegmental atelectasis at the lung bases. Heart size is normal. No pericardial effusi on. Liver spleen stomach pancreas gallbladder appear intact. The bile ducts are not dilated. There is no adrenal mass. Kidneys show satisfactory contrast opacification. No hydronephrosis. Delaye d images show normal renal excretion no retroperitoneal adenopathy. Ureters are not dilated. Bladder distends smoothly. No inguinal hernia. The uterus is anteverted. There is IUD in good position in the uterine fundus. There is small amount of low-density fluid in the pelvis. There is 5.5 x 3.5 cm cyst on the left ovary. There is 2.5 cm cys t on the right ovary. There is no mesenteric edema. No ascites or free air. No sign of a bowel obstruction. Appendix not seen. No sign of thickened appendix. There are some sigmoid diverticula. No diverticulit is. The lumbar vertebrae have normal spacing and alignment. No compression fracture. Posterior elements a re intact. The bony pelvis is intact. The hip joints are intact. Sacroiliac joints are intact. I do n ot see evidence of a rectal mass. No pathologic fluid collection. IMPRESSION: No evidence of rectal mass or abscess. Bilateral ovarian cysts and larger on the left side. Mild low density free fluid in the pelvis could be physiologic. Appendix not seen.
[2022-07-05 22:46] VITALS: BP 132/88; PULSE 84; RESP 16
== END 2022-07-05 22:30 | disposition home or self-care (01) ==
LOC: EC 16:14
DX: N83.201 Unspecified ovarian cyst, right side (principal); F17.200 Nicotine dependence, unspecified, uncomplicated
CPT/HCPCS: 36415; 80053; 83605; 85025; 85610; 85730; 81001; 81025; 93975; 76830; 74177; 99284; 96374; 96361; J2270; Q9967

== ENCOUNTER 2024-09-04 11:01 | Emergency (ER) | payer OTHER ==
--- NOTE | 2024-09-04 11:14 | ED ---
Back Pain HPI - General Stated Complaint: Fall/Back Time Seen by Provider: 09/04/24 11:13 Source: patient, RN notes reviewed Mode of arrival: ambulatory Limitations: no limitations - History of Present Illness Initial Comments: Quick note: 44-year-old female presented to the ER for evaluation of a fall Saturday night. She states she tripped over her cat causing her to fall. She is endorsing pain to her left lower back with radiation to her left leg. Denies head injury. Patient was sent by urgent care. Denies any bowel or bladder incontinence, saddle paresthesias, fevers. - Related Data Home Medications Medication Instructions Recorded Confirmed Famotidine [Pepcid] 10 mg PO DAILY 07/29/23 09/18/23 Allergies Allergy/AdvReac Type Severity Reaction Status Date / Time No Known Allergies Allergy Verified 09/04/24 11:29 Review of Systems ROS Statement: Those systems with pertinent positive or pertinent negative responses have been documented in the HPI. ROS Other: All systems not noted in ROS Statement are negative. Past Medical History Past Medical History: No Reported History Additional Past Medical History / Comment(s): low iron anemia Hx rectal bleeding and pain History of Any Multi-Drug Resistant Organisms: None Reported Past Surgical History: No Surgical Hx Reported Additional Past Surgical History / Comment(s): colonoscopy Past Anesthesia/Blood Transfusion Reactions: No Reported Reaction Additional Past Anesthesia/Blood Transfusion Reaction / Comment(s): no hx blood transfusion Smoking Status: Former smoker - Past Family History Mother Family Medical History: No Reported History General Exam - General Exam Comments Initial Comments: Visual Physical Exam Vital signs reviewed General: Well-appearing, nontoxic, no acute distress. Head: Normocephalic, atraumatic Eyes: PERRLA, EOMI ENT: Airway patent Chest: Nonlabored breathing Skin: No visual rash, normal skin tone Neuro: Alert and oriented 3 Musculoskeletal: No gross abnormalities Course Vital Signs 09/04/24 11:29 Temperature 98.6 F Pulse Rate 77 Respiratory 18 Rate Blood Pressure 136/87 O2 Sat by Pulse 98 Oximetry Medical Decision Making - Medical Decision Making I performed the quick note portion of this chart. Electronically signed by Kuldip Albarran PA-C Patient eloped prior to completion of medical treatment. Disposition Clinical Impression: Left against medical advice Disposition: LEFT AGAINST MEDICAL ADVICE Condition: Undetermined Referrals: None,Stated [Primary Care Provider] - 1-2 days Time of Disposition: 17:08
[2024-09-04 11:33] VITALS: BP 136/87; PULSE 77; RESP 18; TEMP 98.6
--- NOTE | 2024-09-04 12:53 | XR ---
EXAMINATION TYPE: XR lumbar spine 2 or 3V DATE OF EXAM: 09/04/2024 12:05 PM COMPARISON: None CLINICAL INDICATION: Female, 44 years old with history of fall; [facility] TECHNIQUE: XR lumbar spine 2 or 3V - Frontal, lateral and coned in L5-S1 lateral views of the spine. FINDINGS: No evidence of any acute osseous pathology. No evidence of loss of vertebral body height i s seen. There is normal alignment of the lumbar vertebral bodies. Scattered disc space narrowing. Mul tilevel marginal osteophyte formation throughout the visualized spine. There is facet joint arthropat hy throughout the spine. Scattered at least mild neural foraminal stenosis. IMPRESSION: 1. No acute fracture. 2. Mild multilevel disc degeneration. [facility], , 09/04/2024 12:51 PM
== END 2024-09-04 13:05 | disposition left against medical advice (07) ==
LOC: EC 11:01
DX: M54.50 Low back pain, unspecified (principal); Z87.891 Personal history of nicotine dependence; Z53.29 Procedure and treatment not carried out because of patient's decision for other reasons; W01.0XXA Fall on same level from slipping, tripping and stumbling without subsequent striking against object, initial encounter
CPT/HCPCS: 72100; 99283